=== PATIENT | male | born 1950 | race Caucasian/White ===

== ENCOUNTER 2022-11-08 13:52 | Outpatient (REF) | payer MEDICARE, MEDICAID, SELFPAY ==
[2022-11-08 15:29] LABS: Hematocrit 39.3 % (42.0-52.0); Hemoglobin 12.5 g/dl (14.0-18.0); Mean Corpuscular HGB Conc 31.8 g/dl (31.0-36.0); Mean Corpuscular Hemoglobin 28.8 pg (27.0-33.0); Mean Corpuscular Volume 90.6 fL (80.0-98.0); Mean Platelet Volume 9.3 fL (9.4-12.4); Platelet Count 460 X10*3/uL (160-400); Red Blood Count 4.34 X10*6/uL (4.60-5.80); Red Cell Distribution Width 14.7 % (11.0-16.0); White Blood Count 9.1 X10*3/uL (4.8-10.8)
[2022-11-08 16:46] LABS: Alanine Aminotransferase 8 U/L (0-40); Albumin Level 3.9 g/dL (3.5-5.0); Alkaline Phosphatase 92 U/L (39-117); Anion Gap 14 (12-20); Aspartate Amino Transferase 12 U/L (5-37); Bilirubin Total 0.3 mg/dL (0.0-1.0); Blood Urea Nitrogen 8 mg/dL (9-16); Calcium 9.3 mg/dL (8.4-10.2); Carbon Dioxide 30 mmol/L (22-29); Chloride 100 mmol/L (96-108); Estimated Glomerular Filt Rate > 60; Glucose Random 97 mg/dL (60-115); Iron 19 mcg/dL (45-160); Percent Iron Saturation 10 % (15-50); Potassium 4.7 mmol/L (3.3-5.1); Sodium 139 mmol/L (135-145); Total Iron Binding Capacity 193 mcg/dL (228-428); Total Protein 7.2 g/dL (6.5-8.0); Unsaturated Iron Binding 174 ug/dL
[2022-11-08 16:55] LABS: Ferritin 302 ng/mL (20-250); Folate 15.8 ng/mL (> or = 4.0); Vitamin B12 684 pg/mL (200-900); Vitamin D 25-OH Total 36.5 ng/mL (>30)
[2022-11-10 13:09] LABS: Immunoglobulin A 282 mg/dL (70-320)
[2022-11-10 13:39] LABS: Transglutaminase IgA <1.0 U/mL
== END 2022-11-08 13:53 | disposition home or self-care (01) ==
LOC: HO.LAB 13:52
PROVIDERS: PCP Internal Medicine; Visit Provider Internal Medicine
DX: D64.9 Anemia, unspecified (principal); R63.4 Abnormal weight loss; M54.2 Cervicalgia; R51.9 Headache, unspecified
CPT/HCPCS: 36415; 80053; 82306; 82607; 82728; 82746; 82784; 83540; 85027; 86364; 99202

== ENCOUNTER 2022-11-23 14:48 | Outpatient (REF) | payer MEDICARE, OTHER, SELFPAY ==
--- NOTE | ~2022-11-23 | CT_ITS ---
EXAMINATION: CT HEAD WITHOUT CONTRAST CLINICAL INFORMATION: Some echogenic headache for greater than one month COMPARISON: MRI of July 30, 2015 TECHNIQUE: Contiguous axial imaging was performed from the skull base to vertex without intravenous administration of contrast. This CT examination was performed using dose optimization techniques as appropriate, variously including the following: *Automated exposure control *Adjustment of mA and/or kV according to patient size (this includes techniques or standardized protocols for targeted exams where dose is matched to indication/reason for exam; i.e. extremities or head) *Use of iterative reconstruction technique DLP: 898 mGy-cm FINDINGS: No intracranial hemorrhage is identified. No abnormal extra-axial fluid collection. No significant mass effect or midline structure shift. Ventricle, sulci, and cisterns appear unremarkable. Lynn-white matter interface is maintained. Temporomandibular joints appear unremarkable. Calvarium is intact. The paranasal sinuses and mastoid air cells appear aerated. No significant temporal mandibular joint abnormality appreciated. CT/CT head/brain wo IV con IMPRESSION: No acute intracranial pathology.
== END 2022-11-23 14:49 | disposition home or self-care (01) ==
LOC: HO.CT 14:48
PROVIDERS: PCP Internal Medicine; Visit Provider Internal Medicine
DX: G44.86 Cervicogenic headache (principal)
CPT/HCPCS: 70450

== ENCOUNTER 2022-11-30 12:59 | Day surgery (SDC) | payer MEDICARE, OTHER, SELFPAY ==
[2022-11-23 16:12] VITALS: BMI 21.7
--- NOTE | 2022-11-30 13:33 | P.CONAN_ITS ---
HPI - Anesthesia Eval Consult details Narrative: ho anemia involuntary weight loss screening PMFSH Active Problems Active Problems: All Active Problems (Updated 11/30/22 @ 13:28 by Rahel Wolfe RN) Anemia (Acute) Unintentional weight loss (Acute) Neck pain (Acute) Headache (Acute) Past Medical History Medical History Cervical disc disease Cough History of hepatitis B Hx of Guillain-Marquand syndrome Normocytic anemia Functional capacity: independent ambulation Family History Family History Father Heart attack Mother Cancer Family history of problems with anesthesia: No Surgical History Surgical History History of dental surgery History of tonsillectomy and adenoidectomy Hx of colonoscopy History of Problems with Anesthesia: No Social History Social History Household Members: Spouse Alcohol intake: never Patient Tobacco Use Status: Current everyday Tobacco user Tobacco use type: Cigarette Cigarettes Per Day: 3 Have you been hit, kicked, punched, or otherwise hurt by someone within the past year? If so, by whom?: No Are you DNR?: No Advance Directives: No Advance Directives Information Provided: Yes Advance Directives on File: No Recently lost weight without trying: No Eating poorly because of decreased appetite: No Nutrition Risks: No Nutritional Risk Meds Allergies Allergy/AdvReac Type Severity Reaction Status Date / Time ENVIRONMENTAL Allergy Mild SINUS Uncoded 11/30/22 13:18 CONGESTION dust Allergy Unknown Unknown Uncoded 11/30/22 13:18 feathers Allergy Unknown Unknown Uncoded 11/30/22 13:18 mold Allergy Unknown Unknown Uncoded 11/30/22 13:18 Active Medications: Current Medications Lactated Ringer's (Lr) 1,000 mls @ 50 mls/hr IVCONT .Q20H [facility] Home Medications Medication Instructions Recorded Confirmed Last Taken Type ferrous gluconate 324 mg (38 mg 324 mg PO QAM 11/08/22 11/30/22 11/23/22 History iron) tablet fluticasone propionate 50 1 spray intranasal DAILY 11/08/22 11/23/22 Unknown History mcg/actuation nasal spray,suspension loratadine 10 mg tablet 10 mg PO DAILY 11/08/22 11/23/22 Unknown History methocarbamol 750 mg tablet 750 mg PO TID PRN Muscle Spasm 11/08/22 11/23/22 Unknown History Exam Exam Date and Time: November 30, 2022 1333 Height,Weight and Vital Signs: Height 5 ft 11 in Weight 70.76 kg Airway Mallampati Class: II TM Dist: >3cm Neck ROM: Full (H/o cervalgia) Loose/Missing/Broken Teeth: No Heart: RR Lungs: CTA Assessment and Plan Assessment Anesthesia Assessment: Anesthesia Plan Discussed, Smoking Cess. Discussed and Chart Reviewed Final Anesthetic Review Family History of Problems with Anesthesia: No History of Problems with Anesthesia: No NPO: Yes ASA Class: II Final Preanesthetic Review: No Changes in Pt Med Stat, Meds/Allgs Chart Reviewed, Consent Obtained/Reviewed and Anes Risks/Benef Reviewed Patient Risk: Low Procedure Risk: Low Anesthetic Plan Anesthetic Plan: MAC: Disposition: Standard PACU
[2022-11-30 13:40] VITALS: BP 154/79; PULSE 81; RESP 17; TEMP 36.9; O2SAT 99
[2022-11-30] MEDS: Lactated Ringers 1,000 ML 50 ML IVCONT (13:49)
--- NOTE | 2022-11-30 14:24 | MHC.SHP ---
Pre-Procedural Eval Section A Date of Service: 11/30/22 The History & Physical has been completed within 30 days and I have reviewed it.: Yes Section B Chief Complaint: Anemia, weight loss Allergies: Allergies Allergy/AdvReac Type Severity Reaction Status Date / Time ENVIRONMENTAL Allergy Mild SINUS Uncoded 11/30/22 13:18 CONGESTION dust Allergy Unknown Unknown Uncoded 11/30/22 13:18 feathers Allergy Unknown Unknown Uncoded 11/30/22 13:18 mold Allergy Unknown Unknown Uncoded 11/30/22 13:18 Plan Diagnosis/Plan: Unchanged I have reviewed the history and physical and performed a pertinent physical examination on my patient. No changes have occurred unless specified. Time Spent With Patient Time: Total time managing care of this patient today ____ minutes.
--- NOTE | 2022-11-30 14:36 | P.OP_ITS ---
Operative Note Operative Note Date of Service: 11/30/22 Narrative: Procedure:?Esophagogastroduodenoscopy and colonoscopy Indication:?Anemia and weight loss Endoscopist:?Karen Pedraza MD Anesthesia Provider:?Aye Owen CRNA Anesthesia type:?MAC Instrument:?Olympus GIF-H190, PCF-H190L EGD Procedure:?? The procedure, indications, preparation and potential complications were reviewed with the patient, who indicated understanding and gave written informed consent to proceed. A physical exam was performed. The endoscope was introduced through the mouth, and advanced to the second part of the duodenum. The mucosa was carefully examined on slow withdrawal of the endoscope. The patient tolerated the procedure well. There were no immediate complications.? ? EGD Findings:? * Esophagus: Small pale plaques with overlying yellowish exudate was noted in lower esophagus. Cold forceps biopsies were obtained to rule out glycogenic acanthosis. Z line was at 43 cm. * Stomach:?Scant heme and erosions were noted in the cardia. Atrophic appearing mucosa was noted in body of the stomach. Jennifer protocol cold forceps biopsies were taken. * Duodenum:? Normal mucosa to the extent seen.? Cold forceps biopsies were taken duodenal bulb and 2nd portion of the duodenum to rule out celiac sprue. Colonoscopy Procedure:? The patient was then turned for the colonoscopy. A digital rectal exam was performed which was normal. A distal attachment cap was affixed to the tip of the scope and the colonoscope was then inserted through the anus and advanced through the colon to the cecum at 80 cm and terminal ileum. The appendiceal orifice and ileocecal valve was identified.? Mucosa was carefully examined under high definition white light as the instrument was slowly withdrawn in a retrograde panoramic fashion. Ascending colon was intubated twice. Retroflexion was performed in rectum. The procedure was not difficult. There were no immediate obvious complications. The quality of the prep was BBPS: 2+2+3 = excellent Withdrawal time 8 minutes. Limitations: No limitations. Colonoscopy Findings: Mucosa: Normal mucosa in whole colon and terminal ileum. Cold forceps biospies were taken from right and left side of the colon to rule out microscopic colitis. Protruding lesions: * Medium internal hemorrhoids without stigmata of recent bleeding. Impression:? * Pale plaques in lower esophagus (biopsy) * Abnormal gastric mucosa (biopsy) * Normal duodenum (biopsy) * Normal terminal ileum mucosa * Normal colon mucosa (biopsy) * Internal hemorrhoids Recommendations:?? * Follow path results. * If H pylori positive, eradication therapy will be prescribed. * Repeat colonoscopy not recommended for CRC screening due to age. Above has been reviewed with the patient.
[2022-11-30 15:25] VITALS: BP 97/55; PULSE 76; RESP 18; TEMP 37.4; O2SAT 99
[2022-11-30 15:40] VITALS: BP 118/67; PULSE 69; RESP 18; TEMP 37.4; O2SAT 99
== END 2022-11-30 16:30 | disposition home or self-care (01) ==
PROVIDERS: PCP Internal Medicine; Visit Provider Internal Medicine
PROC: (CPT 45380; principal; 2022-11-30 14:10)
DX: D64.9 Anemia, unspecified (principal); R63.4 Abnormal weight loss; Z68.21 Body mass index [BMI] 21.0-21.9, adult; K64.8 Other hemorrhoids; K31.7 Polyp of stomach and duodenum; K29.50 Unspecified chronic gastritis without bleeding; K31.89 Other diseases of stomach and duodenum; R51.9 Headache, unspecified; M54.2 Cervicalgia; G61.0 Guillain-Barre syndrome; Z79.899 Other long term (current) drug therapy; F17.210 Nicotine dependence, cigarettes, uncomplicated
CPT/HCPCS: 45380; 43239; 88302; 88305; 88313; 88342

== ENCOUNTER → 2022-12-20 13:49 | Outpatient (BNVA) | payer MEDICARE, MEDICAID, SELFPAY | PROVIDERS: PCP Internal Medicine; Referring Provider Internal Medicine; Visit Provider Internal Medicine | DX: D64.9 Anemia, unspecified (principal); R63.4 Abnormal weight loss | CPT/HCPCS: 99212 ==

== ENCOUNTER 2023-03-28 14:51 | Outpatient (REF) | payer MEDICARE, OTHER, SELFPAY ==
--- NOTE | ~2023-03-28 | CT_ITS ---
EXAMINATION: CT CERVICAL SPINE WITHOUT CONTRAST CLINICAL INFORMATION: Neck pain. COMPARISON: None available. TECHNIQUE: Multidetector helical imaging acquired in the axial plane with generation of reformatted acquisitions. This CT examination was performed using dose optimization techniques as appropriate, variously including the following: *Automated exposure control *Adjustment of mA and/or kV according to patient size (this includes techniques or standardized protocols for targeted exams where dose is matched to indication/reason for exam; i.e. extremities or head) *Use of iterative reconstruction technique DLP: 556 mGy-cm FINDINGS: There is severe disc space narrowing with endplate sclerosis and osteophyte formation at the C3-C4 level with a very mild retrosubluxation. Significant loss of disc height also evident at the C4-C5 level with endplate sclerosis. Rightward curvature of the mid cervical spine noted. There is ossification of the posterior longitudinal ligament at the C5-C6 level impressing upon the ventral thecal sac. Moderate loss of disc height evident at the C6-C7 and C7-T1 levels. There is generalized bony demineralization. C2-C3: Mild disc bulge and uncovertebral joint spurring with moderate right-sided facet degeneration. Findings result in mild central canal stenosis without significant foraminal encroachment. C3-C4: Severe disc space narrowing with endplate spurring and vacuum phenomenon. Broad-based right paracentral disc protrusion distorts the ventral cord and thecal sac. Moderate central canal stenosis and hypertrophic facet arthropathy with uncovertebral joint spurring contributing to significant left foraminal encroachment. C4-C5: Severe disc space narrowing with a shallow, broad-based central disc protrusion and underlying endplate spurring. Mild central canal stenosis with uncovertebral joint spurring contributing to [id number] foraminal encroachment. C5-C6: Ossification of the posterior longitudinal ligament and disc-osteophyte complex mild to moderately distorts the ventral thecal sac. Tdfd-dh-jedrsqin central canal stenosis without foraminal narrowing. C6-C7: Urbsckww-mh-qtseqm loss of disc height and shallow disc-osteophyte complex with moderate right foraminal narrowing and moderate central canal stenosis. C7-T1: Mild disc-osteophyte complex without central canal stenosis or foraminal narrowing. The craniovertebral junction appears normal. Additional degenerative changes noted at the odontoid tip with vacuum phenomenon at the atlantodental interval. There are mild degenerative changes of the temporomandibular joints. The paraspinal soft tissues appear normal. The lung apices are clear with mild paraseptal emphysematous changes. The imaged portions of the brain demonstrate no acute abnormality. The middle ear cavities and mastoid air cells are well aerated. The imaged sinuses are clear. The nasopharyngeal soft tissues are unremarkable. Mild atherosclerotic wall calcifications noted at the carotid bifurcations. CT/CT cervical spine wo IV con IMPRESSION: 1. Moderate multilevel cervical spondylosis and rightward spinal curvature. Ossification of the posterior longitudinal ligament at the C5-C6 level with pzld-va-udtplqzx central canal stenosis. 2. Severe disc space narrowing and endplate spurring at the C3-C4 level with a broad-based right paracentral disc protrusion distorting the ventral cord and thecal sac. Moderate central canal stenosis and significant left foraminal narrowing. 3. Severe disc space narrowing and shallow central disc protrusion at the C4-C5 level with mild central canal stenosis and ntim-hq-wzjsjfuf foraminal narrowing. 4. Moderate degenerative disc disease at the C6-C7 level with moderate central canal stenosis and moderate right foraminal narrowing.
[2023-03-28 16:48] LABS: Hematocrit 40.7 % (42.0-52.0); Hemoglobin 13.5 g/dl (14.0-18.0); Mean Corpuscular HGB Conc 33.2 g/dl (31.0-36.0); Mean Corpuscular Hemoglobin 31.1 pg (27.0-33.0); Mean Corpuscular Volume 93.8 fL (80.0-98.0); Mean Platelet Volume 10.2 fL (9.4-12.4); Platelet Count 315 X10*3/uL (160-400); Red Blood Count 4.34 X10*6/uL (4.60-5.80); Red Cell Distribution Width 14.7 % (11.0-16.0); White Blood Count 8.9 X10*3/uL (4.8-10.8)
[2023-03-28 17:18] LABS: Iron 27 mcg/dL (45-160); Percent Iron Saturation 14 % (15-50); Total Iron Binding Capacity 197 mcg/dL (228-428); Unsaturated Iron Binding 170 ug/dL
[2023-03-28 17:27] LABS: Ferritin 280 ng/mL (20-250)
== END 2023-03-28 14:52 | disposition home or self-care (01) ==
LOC: HO.CT 14:51
PROVIDERS: PCP Internal Medicine; Visit Provider Internal Medicine
DX: M54.2 Cervicalgia (principal); D64.9 Anemia, unspecified
CPT/HCPCS: 36415; 72125; 82728; 83540; 85027; 99212

== ENCOUNTER 2023-04-08 14:27 | Outpatient (REF) | payer MEDICARE, SELFPAY ==
--- NOTE | ~2023-04-08 | CT_ITS ---
EXAMINATION: CT CHEST SCREENING CLINICAL INFORMATION: Current smoker. 40 pack year history. COMPARISON: Previous chest CT March 2018 TECHNIQUE: Multidetector volumetric CT imaging of the chest is performed without contrast using low dose technique. Additional 2D coronal and sagittal reformatted images and axial 3D maximum intensity projection (MIP) images are generated on the CT workstation. This CT examination was performed using dose optimization techniques as appropriate, variously including the following: *Automated exposure control *Adjustment of mA and/or kV according to patient size (this includes techniques or standardized protocols for targeted exams where dose is matched to indication/reason for exam; i.e. extremities or head) *Use of iterative reconstruction technique DLP: 51 mGy-cm FINDINGS: LUNGS: Mild emphysema. 2 mm right upper lobe nodule axial image 106 series 5. This is similar to March 2018 exam. There is subsegmental atelectasis at the lung bases. The lungs are otherwise clear. No endobronchial or endotracheal lesion. MEDIASTINUM: Normal heart size. No pericardial effusion. Mild coronary artery calcification. Mild aortic valve calcification. Upper normal-size thoracic aorta. No enlarged hilar or mediastinal lymph nodes. Normal thyroid gland. CORONARY ARTERY CALCIFICATION: Mild PLEURA: There is no pleural effusion. No pleural mass or thickening. AXILLA: No lymphadenopathy. UPPER ABDOMEN: Unremarkable OSSEOUS STRUCTURES: Degenerative changes of the spine. CT/CT lung screening IMPRESSION: Mild emphysema. Small stable 2 mm right upper lobe nodule. ASSESSMENT: Lung-RADS category 1: Negative RECOMMENDATION: Annual low-dose chest CT follow-up recommended
== END 2023-04-08 14:28 | disposition home or self-care (01) ==
LOC: HO.CT 14:27
PROVIDERS: PCP Internal Medicine; Visit Provider Physician Assistant Medical
DX: Z12.2 Encounter for screening for malignant neoplasm of respiratory organs (principal); F17.210 Nicotine dependence, cigarettes, uncomplicated
CPT/HCPCS: 71271; G0296

== ENCOUNTER 2023-05-17 12:02 | Outpatient (REF) | payer MEDICARE, SELFPAY ==
--- NOTE | ~2023-05-17 | CT_ITS ---
EXAMINATION: CT ABDOMEN AND PELVIS WITH CONTRAST CLINICAL INFORMATION: 73-year-old male with abnormal weight loss COMPARISON: None available. TECHNIQUE: Multidetector volumetric images were obtained from the superior aspect of the liver through the pubic symphysis following administration 85 mL of Omnipaque 350 intravenous contrast. Sagittal and coronal reformatted images were obtained on the technologist's workstation. Oral contrast: Administered This CT examination was performed using dose optimization techniques as appropriate, variously including the following: *Automated exposure control *Adjustment of mA and/or kV according to patient size (this includes techniques or standardized protocols for targeted exams where dose is matched to indication/reason for exam; i.e. extremities or head) *Use of iterative reconstruction technique DLP: 344 mGy-cm FINDINGS: LUNG BASES: There are mild linear scarring seen bibasilar LIVER, GALLBLADDER, AND BILIARY TREE: There is 0.5 cm cyst in the left lobe of the liver. The rest of liver revealed normal attenuation size and shape. Gallbladder is unremarkable. PANCREAS: Unremarkable. SPLEEN: Unremarkable. ADRENAL GLANDS: Unremarkable. KIDNEYS AND URETERS: The kidneys are normal in size, shape, and attenuation. No hydronephrosis, hydroureter, or calculi seen. No perinephric stranding. BLADDER: Unremarkable. GASTROINTESTINAL TRACT: The small and large bowel are unremarkable. The appendix is not seen. ABDOMINAL WALL: No significant hernia is appreciated. LYMPH NODES: Normal. VASCULAR: Unremarkable. PELVIC VISCERA: Posterior disease is heterogeneous and enlarged OSSEOUS STRUCTURES: There are multilevel degenerative changes in lumbar spine with pars defect at the level of L5-S1 bilaterally not associated with spondylolisthesis. 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 There is levoscoliosis of lumbar spine CT/CT abdomen pelvis w IV con IMPRESSION: 1. No explanation for weight loss. 2. Degenerative changes in lumbar spine and right hip joint. 3. Prostate hypertrophy Fleischner guidelines were followed.
[2023-05-17 13:25] LABS: Ferritin 238 ng/mL (20-250); Iron 51 mcg/dL (45-160); Percent Iron Saturation 23 % (15-50); Total Iron Binding Capacity 218 mcg/dL (228-428); Unsaturated Iron Binding 167 ug/dL
[2023-05-17] MEDS: Barium Sulfate Oral (Vanilla) 450 ML ORAL.SUSP 900 ML PO (15:09)
[2023-05-17] MEDS: iohexoL 350 MG/ML 100 ML INFUS..BTL IV (15:09)
[2023-05-18 08:27] LABS: Creatinine POC 0.6 mg/dL (0.5-1.4); GFR POC > 60
== END 2023-05-17 12:03 | disposition home or self-care (01) ==
LOC: HO.CT 12:02
PROVIDERS: PCP Internal Medicine; Visit Provider Internal Medicine
DX: D64.9 Anemia, unspecified (principal); R63.4 Abnormal weight loss
CPT/HCPCS: 36415; 74177; 82565; 82728; 83540; Q9967

== ENCOUNTER 2024-02-01 09:14 | Outpatient (REF) | payer MEDICARE, MEDICAID, SELFPAY ==
[2024-02-01 14:53] LABS: MANUAL DIFF FLAG NO
[2024-02-01 14:56] LABS: Basophils Absolute Auto 0.1 X10*3/uL (0.0-0.2); Basophils Percent Auto 0.7 % (0-2); Eosinophils Absolute Auto 0.2 X10*3/uL (0.0-0.4); Eosinophils Percent Auto 2.1 % (0-4); Hematocrit 44.5 % (42.0-52.0); Hemoglobin 14.6 g/dl (14.0-18.0); Imm Gran Abs Auto 0.02 X10*3/uL (0.00-0.03); Imm Gran Pct Auto 0.2 % (0.0-0.4); Lymphocytes Absolute Auto 2.5 X10*3/uL (1.2-4.9); Lymphocytes Percent Auto 30.4 % (20-40); Mean Corpuscular HGB Conc 32.8 g/dl (31.0-36.0); Mean Corpuscular Hemoglobin 31.9 pg (27.0-33.0); Mean Corpuscular Volume 97.4 fL (80.0-98.0); Mean Platelet Volume 10.8 fL (9.4-12.4); Monocytes Absolute Auto 0.5 X10*3/uL (0.1-1.2); Neutrophils Percent Auto 60.6 % (45-73); Platelet Count 259 X10*3/uL (160-400); Red Blood Count 4.57 X10*6/uL (4.60-5.80); White Blood Count 8.3 X10*3/uL (4.8-10.8)
[2024-02-01 17:01] LABS: Alanine Aminotransferase 8 U/L (0-40); Alkaline Phosphatase 92 U/L (39-117); Anion Gap 11 (12-20); Aspartate Amino Transferase 15 U/L (5-37); Bilirubin Total 0.5 mg/dL (0.0-1.0); Blood Urea Nitrogen 13 mg/dL (9-16); Calcium 9.7 mg/dL (8.4-10.2); Carbon Dioxide 30 mmol/L (22-29); Chloride 101 mmol/L (96-108); Estimated Glomerular Filt Rate > 60; Glucose Random 72 mg/dL (60-115); Potassium 3.7 mmol/L (3.3-5.1); Sodium 138 mmol/L (135-145); Total Protein 7.4 g/dL (6.5-8.0)
== END 2024-02-01 09:15 | disposition home or self-care (01) ==
LOC: HO.CHCLDS 09:14
PROVIDERS: Visit Provider Internal Medicine
DX: Z00.00 Encounter for general adult medical examination without abnormal findings (principal); D64.9 Anemia, unspecified
CPT/HCPCS: 36415; 80053; 85025

== ENCOUNTER 2024-03-08 16:06 | Outpatient (REF) | payer MEDICARE, MEDICAID, SELFPAY ==
[2024-03-08 18:10] LABS: Influenza A PCR NEGATIVE (Negative); Influenza B PCR NEGATIVE (Negative); Resp Syncy Virus RNA Qual PCR NEGATIVE (Negative); SARS COV2 PCR INHOUSE NEGATIVE (Negative)
== END 2024-03-08 16:07 | disposition home or self-care (01) ==
LOC: HO.CHCLNP 16:06
PROVIDERS: Visit Provider Family Medicine
DX: J06.9 Acute upper respiratory infection, unspecified (principal)
CPT/HCPCS: 0241U; 87070

== ENCOUNTER 2024-07-27 11:53 | Outpatient (REF) | payer MEDICARE, MEDICAID, SELFPAY ==
--- NOTE | ~2024-07-27 | XR_ITS ---
EXAMINATION: XR RIBS, BILATERAL CLINICAL INFORMATION: Right-sided rib pain. COMPARISON: CT chest 04/08/2023. TECHNIQUE: 3 views of the bilateral ribs were obtained. FINDINGS: Mildly displaced fracture of the right anterior eighth and ninth ribs. Normal appearance of the cardiomediastinal silhouette. No focal consolidation, pleural effusion or pneumothorax. XR/XR ribs BI 3V IMPRESSION: 1. Mildly displaced fractures of the right anterior eighth and ninth ribs. 2. No acute cardiopulmonary findings. Electronically signed by: Mariella Dennison MD 07/27/2024 04:11 PM EDT
== END 2024-07-27 11:54 | disposition home or self-care (01) ==
LOC: HO.XRAY 11:53
PROVIDERS: PCP Internal Medicine; Visit Provider Pediatrics
DX: R07.81 Pleurodynia (principal)
CPT/HCPCS: 71110

== ENCOUNTER 2024-10-30 15:08 | Outpatient (REF) | payer MEDICARE, MEDICAID, SELFPAY ==
--- NOTE | ~2024-10-30 | CT_ITS ---
CLINICAL HISTORY: F17.210 - Nicotine dependence, cigarettes, uncomplicated CT lung cancer screening (LDCT) Comparison: None Technique: Axial CT images of the chest using low-dose technique. Referring provider counseled the patient on shared decision-making for LDCT screening. Additional counseling was provided on smoking cessation. Effective radiation dose total: DLP 80 mGycm, CTDIvol 1.9 mGy. Findings: The thyroid gland appears normal. There is no mediastinal, hilar, axillary lymphadenopathy. The heart is normal in size. There is no pericardial effusion. Coronary artery calcifications are present. Linear scarring is seen in bilateral lower lobes. Mild centrilobular and paraseptal emphysema is seen in bilateral upper lobes. No suspicious pulmonary nodule is identified. Limited examination of the upper abdomen demonstrates a subcentimeter left hepatic hypodensity that is too small to characterize. There are subacute/remote appearing fractures of the right lateral 8th and 9th ribs. Mild degenerative changes are seen in the spine. No acute osseous abnormality is identified. Impression: 1. No suspicious pulmonary nodule is identified (Lung-RADS 1). Recommend continued annual low-dose screening CT chest in 12 months. 2. Mild pulmonary emphysema. 3. Coronary artery calcifications. Category 1: Normal; continue annual screening Category 2: Benign appearance or behavior, continue annual screening Category 3: Probably benign, [address] recommended Category 4A: Suspicious, [address] recommended; may consider PET/CT Category 4B: Suspicious, Additional diagnostics and/or tissue sampling recommended Category 4X: Suspicious, Additional diagnostics and/or tissue sampling recommended Category 0: Recalls (incomplete screen due to Incomplete coverage, Noise, Respiratory motion, Expiration, Obscured by acute abnormality) This document has been electronically signed by: Ada Whiting on 10/31/2024 08:48:26
--- OUTSIDE RECORDS SUMMARY | 2024-10-30 17:08 | XMS_ITS | Data Portability ---
Author Organization [place] - [facility], Allergy Address [address] [place] [phone] Care Team Providers Care Respiratory Care Assistant Name Role Phone CURT BRAY Primary Care Provider [phone] Assessment Encounter Date Assessment Date Assessment LastModified by Organization Details LastModified Time 10/23/2024 10/23/2024 Patient with bilateral sensorineural hearing loss, left greater than right, undergoing workup for cochlear implantation. CAT scan of the temporal bones was done today in the office which shows mildly sclerotic mastoids bilaterally, but no anatomic contraindications to cochlear implantation in either ear. The patient has been found to meet the anatomic and audiologic candidacy criteria for cochlear implantation in the left ear. Today we discussed the risks, benefits, and complications associated with cochlear implantation, including the risks of bleeding, infection, CSF leak, temporary or permanent facial nerve paralysis or paresis, delayed facial paresis, long-term risk of meningitis, and risk for device failure or need for device removal or replacement. We discussed the importance of keeping up-to-date Prevnar 20 vaccine to reduce the long-term risk of meningitis. After full discussion, the patient would like to go ahead and proceed with implantation. We will be implanting the left ear with the Cochlear [employer] CI 632implant. After full discussion, the patient would like to proceed with surgery. I have provided patient with the contact information for my surgical orderly. We will begin the scheduling process and see the patient back at the time of surgery. Patient will require medical clearance from their primary care provider preoperatively. Patient has been specifically instructed to contact Zeny Love with Cochlear to choose processors and accessories. Patient has been specifically instructed to contact his sales leader Cielo Jacinto at the [facility] Cochlear Implant Program once he knows his surgical date to set up post implant mapping appointments. [email or web address] Not available 10/23/2024 11:33:37 Plan of Treatment Reminders Order Date Submit Date Provider Last Modified By Organization Details Last Modified Time Details Appointments SURGERY 150 2024 01:00P M IVA CASTELLANOS MD Not available Not available Not available Establish ed 15 2024 11:15A M WAQAR JEONG PA-C Not available Not available Not available Establish ed 10 2024 03:30P M IVA CASTELLANOS MD Not available Not available Not available Lab None recorded. Referral None recorded. Procedures None recorded. Surgeries cochlear device implantat ion (SURG) 2024 025 [email or web address] Not available 10/25/2024 10:06:11 Imaging MRI, brain + internal auditory canal, w/wo contrast - MRI, BRAIN + INTERNAL AUDITORY CANAL, W/WO CONTRAST 2023 024 [facility] ([facility]), [address] [facility], [place], [address], 04/10/2024 14:52:34 Medication Orders None recorded. Patient TargetsNo targets recorded. Patient InstructionsNo instructions recorded. Reason for Referral None Reported. Results Created Date Observation Date Name Description Value Unit Range Abnormal Flag Note LastModifiedBy Organization Detail LastModifiedTime 04/10/20 24 04/09/2024 MRI, brain + brain stem, w/wo contr ast [facility] Access ion Number : [id number] Patien t Name: Fred white, Mundo Pata l Record Number : [id number] Date of : 1949 Date of Exam: 2023 Referr ing Physic alicia: Mateo Castellanos re Ear Nose [address] [place] [address] Exam: MR Brain (C-/C+ ) CPT 76580 Room Descri ption: [facility] Verio 3.0T MRI of the brain withou t and with contra st with focus to IACs Clinic al indica tions: Dizzin ess and hearin g loss Compar juju: None. FINDIN GS: No CP angle tumor is seen. Bilate ral 7th and 8th nerve comple xes are normal in calibe r and signal intens ities. No abnorm al enhanc ement is noted. There is no eviden ce of an acoust ic schwan noma. The visual ized brain parenc hyma shows genera lized age-re lated atroph y. Small cystic enceph alomal acia is seen in the right assisted living manager ior inferi or occipi arturo lobe. Old lacuna r infarc ts are seen within the right cerebe llum. Mild bilate ral white matter diseas e is nonspe cific and could repres ent chroni c small vessel ischem ic diseas e. Please correl ate clinic ally. There is no defini te abnorm al enhanc ement after contra st. Normal flow-v oids are noted at within major intrac ranial arteri es. There is an elonga ryan fillin g defect in the left sigmoi d sinus, suspic ious for dural sinus thromb osis. Please correl ate with the MR venogr am of head. There is mild mucosa l thicke sandra within bilate ral ethmoi d sinuse s. Bilate ral mastoi d air cells are partia lly opacif ied, more on left. IMPRES AMINA: Normal IACs withou t and with contra st. There is an elonga rayn fillin g defect in the left sigmoi d sinus, suspic ious for dural sinus thromb osis. Please correl ate with the MR venogr am of head. A Signif icant action able findin g will be commun icated to the orderi ng or respon sible provid er by the medica l record s depart ment. Receip t of this commun icatio n by the respon sible or orderi ng provid er will be docume nted in [facility] onnect Action able Findin senthil dye e [place] [id number]. Electr onical ly Signed By: Dharmesh Davenport MD [email or web address] [place] [address] [facility] ([facility]) [address], [place], [address], 04/19/2024 13:16:38 05/03/20 24 05/03/2024 MR, angio gram, brain , w/wo contr ast [facility] Access ion Number : [id number] Stormy jack Name: Mundo Akins Record Number : [id number] Date of : 1949 Date of Exam: 2023 Referr ing Physic alicia: Mateo Castellanos re Ear Nose [address] [place] [address] Exam: MR Brain Angio (C-/C+ ) CPT 28666 Room Descri ption: [facility] Pion 3T MR Brain Angio (C-/C+ ) CPT 42601 HISTOR Y: Dizzin ess. Bilate ral hearin g loss. COMPAR JUJU: MRI of brain on 04/09/20 24. FINDIN GS: The superi or sagitt al sinus, the straig ht sinus, the vein of Braxton and bilate ral transv erse and sigmoi d sinuse s show no fillin g defect . The left transv erse and sigmoi d sinuse s are slight ly smalle r in calibe rs which are normal varian ts. The visual ized brain parenc hyma shows a small cystic enceph alomal acia in the right occipi arturo lobe. Old lacuna r infarc ts are seen in the right cerebe llum. No abnorm al enhanc ement. IMPRES AMINA: Unrema rkable MR venogr am of head. No eviden ce of dural sinus thromb osis is seen. Electr onical ly Signed By: Dharmesh Davenport MD [email or web address] [facility] ([facility]) [address] [facility], [place], [address], 05/20/2024 07:48:44 05/29/2007/12/2023 imagi ng/di agnos tic resul t No observ ation record ed. [email or web address] Not Available 21:42:53 05/29/2007/20/2023 imagi ng/di agnos tic resul t No observ ation record ed. [email or web address] Not Available 21:42:54 05/29/2007/20/2023 cochl ear impla nt deter minat ion form* No observ ation record ed. [email or web address] Not Available 2024 10:32:52 10/27/1910/23/2024 CT, tempo ral bone, w/o contr ast No observ ation record ed. [email or web address] [facility] [address], [address], 10/29/2024 13:17:35 Result Notes None recorded. Problems Name Problem SNOMED Code Status Onset Date Resolution Date Notes Provider Name and Address Organization Details Recorded Time Sensorineural hearing loss of bilateral ears 989007342 Active 2023 IVA CASTELLANOS MD [address] [address], [place], [address], [facility] - [facility] 16:56:20 Cerebral venous sinus thrombosis 460702713 Active 2023 IVA CASTELLANOS MD [address] [address], [place], [address], [facility] - [facility] 13:17:13 Problem Notes None recorded. Procedures Surgical History Date Name Laterality Status Provider Name and Address Organization Details Recorded Time CT temporal bones - Xoran completed IVA CASTELLANOS MD [address] [place] [address], [phone], [facility] 10/23/2024 10:31:51 Imaging Results Imaging Date Name Status LastModified by Organization Details LastModified Time 04/09/2024 MRI, brain + brain stem, w/wo contrast completed [address] [facility] ([facility]) [address], [place], [address], 04/19/2024 13:16:38 05/03/2024 MR, angiogram, brain, w/wo contrast completed [address] [facility] ([facility]) [address], [place], [address], 05/20/2024 07:48:44 07/12/2023 imaging/diagnosti c result completed Information not available 05/29/2024 21:42:53 07/20/2023 imaging/diagnosti c result completed Information not available 05/29/2024 21:42:54 07/20/2023 cochlear implant determination form* completed [email or web address] Information not available 10/23/2024 10:32:52 10/23/2024 CT, temporal bone, w/o contrast completed [email or web address] [facility] [address] [facility] [address], [place], [address], 10/29/2024 13:17:35 Procedure Notes None recorded. Medical Equipment None Reported. Allergies No known drug allergies Medications Name Sig Start Date Stop Date Status Note LastModified by Organization Details LastModified Time Sudogest 30 mg tablet Take 2 tablets every 4 hours by oral route. active Not Available Not Available Not Available famotidine 20 mg tablet Take 1 tablet twice a day by oral route. active Not Available Not Available No t Available meclizine 25 mg tablet Take 1 tablet 3 times a day by oral route. active Not Available Not Available No t Available omeprazole 20 mg capsule,dejah yed release Take 1 capsule every day by oral route. active Not Available Not Available No t Available fluticasone propionate 50 mcg/actuatio n nasal spray,suspen amina [place] 1 spray every day by intranasal route. active Not Available Not Available No t Available loratadine 10 mg capsule Take by oral route. active Not Available Not Available Not Available Vitals None Recorded Social History None recorded. Functional Status None recorded. Mental Status None recorded. Family History Nothing Reported. Medical History Condition Response GERD/Reflux Y Past Encounters Encounter ID Performer Location Encounter Start Date Encounter Closed Date Diagnosis/Indication Diagnosis SNOMED-CT Code Diagnosis ICD10 Code Diagnosis Note [id number] IVA CASTELLANOS MD [facility] [address] [address] 03/29/2024 14:02:51 03/29/2024 15:13:02 Sensorineural hearing loss of bilateral ears 304940706 H90.3 Patient's audiogram is demonstrat ing an asymmetric sensorineu ral hearing loss affecting the {{right ear greater than left left ear greater than right*}}. This is enough of an asymmetry to warrant retrocochl ear workup. Recommend MRI scan of the brain and internal auditory canals with gadolinium . We will arrange this and see the patient back for review over a teleheath visit. Today we went over his cochlear implant evaluation . While he does meet audiologic candidacy criteria for cochlear implantati on in the left ear, currently Medicare does not pay for cochlear implantati on for single-lindsey ed deafness. This may change in the future, but unclear when. In the meantime, the patient is an excellent candidate for right-side d or BiCROS amplificat ion. I have provided him medical clearance to return to [facility] audiology to discuss this in more detail. [id number] IVA CASTELLANOS MD [facility] [address] [address] 10/23/2024 10:10:46 10/23/2024 11:34:59 Sensorineural hearing loss of bilateral ears 290782533 H90.3 Health Concerns Section Related Observation LastModified by Organization Detai ls LastModified Time None Recorded Concern Status LastModified by Organization Details LastModified Time None Recorded Advance Directives Directive None Recorded Payers Encounter Date Sequence Insurance Name Policy Number Policy Dai Covered Member ID Dai Member ID Guarantor Name 03/29/2024 2 [place] [facility] Mundo A Penelope [id number] Mundo A Penelope 03/29/2024 1 [place] [employer] Mundo A Penelope [id number] Mundo A Penelope 10/23/2024 2 [place] [facility] Mundo A Penelope [id number] Mundo A Penelope 10/23/2024 1 [place] [employer] Mundo A Penelope [id number] Mundo A Penelope Notes Date Note Type Note Provider Name and Address Organization Details Recorded Time 03/29/2024 text/html 74-year-old male referred for evaluation of his hearing. Patient reports having had a sudden left-sided hearing loss about 5 years ago. He is not sure whether he ever had a medical evaluation or treatment for this. He is left with a significantly asymmetric sensorineural hearing loss affecting the left ear greater than right. Patient had audiometric testing at [facility] audiology which showed mild to moderately severe sensorineural hearing loss in the right ear and a severe to profound sensorineural hearing loss in the left ear. Patient underwent formal cochlear implant evaluation and was found to meet the audiologic candidacy criteria for cochlear implantation in the left ear. IVA CASTELLANOS MD [address], [address], [facility] 03/29/2024 16:46:59 10/23/2024 text/html Patient had left sided sudden sensorineural hearing loss about 5 years ago, resulting in a profound sensorineural hearing loss on the left. He also has rather significant sensorineural hearing loss on the right.He underwent cochlear implant evaluation and was found to meet the audiologic candidacy criteria for cochlear implantation on the left. He had MRI scan of the brain which was negative for retrocochlear pathology but there was some concern about a possible vascular anomaly affecting the left sigmoid sinus. He had MRA and MRV of the cerebral vasculature which ended up being normal. Patient returns today for CAT scan of the temporal bones to establish anatomic candidacy for cochlear implantation. IVA CASTELLANOS MD [address] [place] [address],[address], [address], [facility] 10/24/2024 16:57:20
--- OUTSIDE RECORDS SUMMARY | 2024-10-30 17:08 | XMS_ITS | Continuity of Care Document ---
Author Organization [place] - [facility], [facility] Address [address] [place] [address] Care Team Providers Care Administrative Support Assistant Name Role Phone CURT BRAY Primary Care Provider [phone] Assessment Encounter Date Assessment Date Assessment LastModified [...] implanting the left ear with the Cochlear [employer] CI 632implant. After full discussion, the patient would like to proceed with surgery. I have provided patient with the contact information for my surgical elastic knitter. We will begin the scheduling process and see the patient back at the time of surgery. Patient will require medical clearance from their primary care provider preoperatively. Patient has been specifically instructed to contact Zeny Love with Cochlear to choose processors and accessories. Patient has been specifically instructed to contact his field clerk Cielo Jacinto at the [facility] Cochlear Implant Program once he knows his surgical date to set up post implant mapping appointments. [email or web address] Not available 10/23/2024 11:33:37 Plan of Treatment [...] cochlear device implantat ion (SURG) 2024 025 [email or web address] Not available 10/25/2024 10:06:11 Imaging None recorded. Medication Orders None recorded. Patient TargetsNo targets recorded. Patient InstructionsNo instructions recorded. Reason for Referral None Reported. Results Created Date Observation Date Name Description Value Unit Range Abnormal Flag Note LastModifiedBy Organization Detail LastModifiedTime 10/27/19 25 10/23/2024 CT, tempo ral bone, w/o contr ast No observ ation record ed. [facility] [address] [address], [place], [address], 10/29/2024 13:17:35 Result Notes None recorded. Problems Name Problem SNOMED Code Status Onset Date Resolution Date Notes Provider Name and Address Organization Details Recorded Time Sensorineural hearing loss of bilateral ears 430263805 Active 2023 IVA CASTELLANOS MD [address] [place] [address], [phone], [facility] - [facility] 4 16:56:20 Cerebral venous sinus thrombosis 916483228 Active 2023 IVA CASTELLANOS MD [address] [place] [address], [phone], [facility] 4 13:17:13 Problem Notes None recorded. Procedures Surgical History Date Name Laterality Status Provider Name and Address Organization Details Recorded Time CT temporal bones - Xoran completed IVA CASTELLANOS MD [address] [place] [address], [phone], [facility] - [facility] 10/23/2024 10:31:51 Imaging Results None recorded. Procedure Notes None recorded. Medical Equipment None [...] fluticasone propionate 50 mcg/actuatio n nasal spray,suspen tadeo [place] 1 spray every day by intranasal route. [...] SNOMED-CT Code Diagnosis ICD10 Code Diagnosis Note [id number] IVA CASTELLANOS MD [facility] [address] [address] 10/23/2024 10:10:46 10/23/2024 11:34:59 Sensorineural hearing loss of bilateral ears 881998290 H90.3 Health Concerns Section Related Observation LastModified by Organization Detai ls LastModified Time None Recorded Concern Status LastModified by Organization Details LastModified Time None Recorded Payers Encounter Date Sequence Insurance Name Policy Number Policy Dai Covered Member ID Dai Member ID Guarantor Name 10/23/2024 2 [place] [facility] Mundo A Penelope [id number] Mundo A Penelope 10/23/2024 1 [place] [employer] Mundo A Penelope [id number] Mundo A Penelope Notes Date Note Type Note Provider Name and Address Organization Details Recorded Time 10/23/2024 text/html Patient had left sided sudden [...] candidacy for cochlear implantation. IVA CASTELLANOS MD [address] [place] [address], [place], [address], [facility] - [facility] 10/24/2024 16:57:20
== END 2024-10-30 15:09 | disposition home or self-care (01) ==
LOC: HO.CT 15:08
PROVIDERS: PCP Internal Medicine; Visit Provider Physician Assistant Medical
DX: Z12.2 Encounter for screening for malignant neoplasm of respiratory organs (principal); F17.210 Nicotine dependence, cigarettes, uncomplicated
CPT/HCPCS: 71271

== ENCOUNTER → 2024-10-30 15:10 | Outpatient (BNV) | payer MEDICARE, MEDICAID, SELFPAY | PROVIDERS: PCP Internal Medicine; Visit Provider Radiology Vascular & Interventional Radiology | DX: F17.210 Nicotine dependence, cigarettes, uncomplicated (principal) | CPT/HCPCS: 71271 ==

== ENCOUNTER 2024-11-15 10:30 | Outpatient (REF) | payer MEDICARE, MEDICAID, SELFPAY ==
--- OUTSIDE RECORDS SUMMARY | 2024-11-15 10:33 | XMS_ITS | Encounter Summary ---
Author Organization [employer] Address [address] [facility] 7t [place] [address] Care Team Providers Care Flare Worker Name Role Phone Zeeshan Houston MD Primary Care Provider [phone] Encounter Details Date Type Department Care Team (Late st Contact Info) Description 11/02/2024 1:15 PM EST Immunization [facility] [address] [place] [address] Jaqui Mcdonald LPN Encounter for immunization (Primary Dx) Social History Tobacco Use Types Packs/Day Years Used Date Smoking Tobacco: Every Day Cigarettes 1 58 Smokeless Tobacco: Never Comments:Currently Smokes 3 cig a day x the last 4 years. Depression Answer Date Recorded Patient Health Questionnaire-9 Score 3 01/31/2024 Patient Health Questionnaire-9 Score 3 01/31/2024 Last PHQ-9: Questionnaire Data Not on file 0 01/31/2024 Housing Stability Answer Date Recorded What is your housing situation today? I have libby beltran 01/25/[address] you li ve. Do you have problems with any of the following? None of the above 01/25/2024 Food Insecurity Answer Date Recorded Within the past 12 months, y ou worried that your food would run out before you got money to buy more: Never True 01/25/2024 Within the past 12 months,th e food you bought just didn't last and you didn't have enough money to get more: Never True Transportation Answer Date Recorded In the past 12 months, has l ack of transportation kept you from medical appts, meetings, work or from getting things needed for daily living? No 01/25/2024 Utilities Answer Date Recorded In the past 12 months, has t he electric, gas, oil or water company threatened to shut off services in your home? No 01/25/2024 Depression Answer Date Recorded Patient Health Questionnaire-2 Score 1 01/31/2024 Sex and Gender Information Value Date Recorded Sex Assigned at Male 08/09/2022 10:17 AM EDT Legal Sex Male 10:17 AM EDT Gender Identity Male 08/09/2022 10:17 AM EDT Sexual Orientation Straight 08/09/2022 10 :17 AM EDT documented as of this encounter Progress Notes * Jaqui Mcdonald LPN - 11/02/2024 1:15 PM EST Subjective Patient ID: Mundo Negrete is a 74 y.o. male who presents here for PCV 20, pneumococcal conjugate, vaccine. Pt reporting and record indicate no contraindications to vaccination. Pt advised that they could experience pain/redness/swelling @ injection site with a potential to experience head ache, loss of appetite, fever, joint pain, chills following vaccination. Pt states understanding and agrees to vaccination. documented in this encounter Plan of Treatment Upcoming Encounters Date Type Department Care Team (Late st Contact Info) Description 02/14/2025 2:00 PM EDT Office Visit [facility] ADULT DENTAL [address] [place] [address] Candice Cruz documented as of this encounter Visit Diagnoses Diagnosis Encounter for immunization- Primary documented in this encounter Additional Health Concerns Assessment Noted Time PHQ-9 Depression Total Score: 3 01/31/20 24 3:36 PM EDT documented as of this encounter Care Teams Flare Worker Relationship Specialty Start Date End Date Zeeshan Houston MD [address] [place] [address] PCP - General Internal Medicine 02/10/12 documented as of this encounter
--- OUTSIDE RECORDS SUMMARY | 2024-11-15 10:33 | XMS_ITS | Encounter Summary ---
Author Organization [employer] Address [address] [facility] 7t [place] [address] Care Team Providers Care Trim Setter Helper Name Role Phone Zeeshan Houston MD Primary Care Provider [phone] Encounter Details Date Type Department Care Team (Late st Contact Info) Description 10/30/2024 Orders Only [facility] External Provider, [facility] Social History Tobacco Use Types Packs/Day Years [...] AM EDT documented as of this encounter Plan of Treatment Upcoming Encounters Date Type Department Care Team (Late st Contact Info) Description 02/14/2025 2:00 PM EDT Office Visit [facility] ADULT D[facility] [address] [place] [address] Candice Cruz documented as of this encounter Procedures Procedure Name Priority Date/Time Associated Diagnosis Comments LDCT LUNG SCREENING Routine 10/31/2024 8 :48 AM EST documented in this encounter Results * CT Lung Screening Low dose (10/31/2024 8:48 AM EST) Anatomical Region Laterality Modality Lung Computed Tomogra phy 10/31/2024 8:48 AM EST Narrative 10/31/2024 8:49 AM EST ? [facility] ?[address] ?[place] [address] ? CT Scan Report ? Signed ? Patient: Mundo Negrete ?MR#: [id number] ?? [id number] ? : 1950 ?Acct:[id number] ? Age/Sex: 74 / M ?ADM Date: 10/30/24 ? Loc: HO.CT ? Attending Dr: Milagros Roberts PA-C ? Ordering Physician: Milagros Roberts PA-C ?? Date of Service: 10/30/24 ?? Procedure(s): CT lung screening ?? Accession Number(s): [id number] ? cc: Zeeshan Houston MD; Milagros Roberts PA-C ? Report Number: ?? [id number]: Total DLP = ?? 89.00 mGy-cm ? CLINICAL HISTORY: F17.210 - Nicotine dependence, cigarettes, uncomplicated ? CT lung cancer screening (LDCT) ? Comparison: None ? Technique: ?? Axial CT images of the chest using low-dose technique. Referring provider ?? counseled the patient on shared decision-making for LDCT screening. ?? Additional counseling was provided on smoking cessation. ?? Effective radiation dose total: DLP 80 mGycm, CTDIvol 1.9 mGy. ? Findings: ?? The thyroid gland appears normal. There is no mediastinal, hilar, axillary ?? lymphadenopathy. ? The heart is normal in size. There is no pericardial effusion. Coronary ?? artery calcifications are present. ? Linear scarring is seen in bilateral lower lobes. Mild centrilobular and ?? paraseptal emphysema is seen in bilateral upper lobes. No suspicious ?? pulmonary nodule is identified. ? Limited examination of the upper abdomen demonstrates a subcentimeter left ?? hepatic hypodensity that is too small to characterize. ? There are subacute/remote appearing fractures of the right lateral 8th and ?? 9th ribs. Mild degenerative changes are seen in the spine. No acute ?? osseous abnormality is identified. ? Impression: ?? 1. No suspicious pulmonary nodule is identified (Lung-RADS 1). Recommend ?? continued annual low-dose screening CT chest in 12 months. ?? 2. Mild pulmonary emphysema. ?? 3. Coronary artery calcifications. ? Category 1: Normal; continue annual screening ?? Category 2: Benign appearance or behavior, continue annual screening ?? Category 3: Probably benign, [address] recommended ?? Category 4A: Suspicious, [address] recommended; may consider PET/CT ?? Category 4B: Suspicious, Additional diagnostics and/or tissue sampling ?? recommended ?? Category 4X: Suspicious, Additional diagnostics and/or tissue sampling ?? recommended ?? Category 0: Recalls (incomplete screen due to Incomplete coverage, Noise, ?? Respiratory motion, Expiration, Obscured by acute abnormality) ? This document has been electronically signed by: Ada Whiting on ?? 10/31/2024 08:48:26 ? Dictated By: ?Ada Whiting MD ? Signed By: ?<Electronically signed by Ada Whiting MD in OV> ? 10/31/24 0849 ? DD/ 0848 ? TD/TT: 10/31/24 0848 ? Cuprous Chloride Helper: ? Procedure Note Donotuseinterpreter, Image - 10/31/[address] [address] [address] Scan Report Signed Patient: Mundo Negrete AMR#: [id number] : 2Acct:[id number] Age/Sex: 74 / MADM Date: 10/30/24 Loc: HO.CT Attending Dr: Milagros Roberts PA-C Ordering Physician: Milagros Roberts PA-C Date of Service: 10/30/24 Procedure(s): CT lung screening Accession Number(s): [id number] cc: Zeeshan Houston MD; Milagros Roberts PA-C Report Number: [id number]: Total DLP = 89.00 mGy-cm CLINICAL HISTORY: F17.210 - Nicotine dependence, cigarettes, uncomplicated CT lung cancer screening (LDCT) Comparison: None Technique: Axial CT images of the chest using low-dose technique. Referring provider counseled the patient on shared decision-making for LDCT screening. Additional counseling was provided on smoking cessation. Effective radiation dose total: DLP 80 mGycm, CTDIvol 1.9 mGy. Findings: The thyroid gland appears normal. There is no mediastinal, hilar, axillary lymphadenopathy. The heart is normal in size. There is no pericardial effusion. Coronary artery calcifications are present. Linear scarring is seen in bilateral lower lobes. Mild centrilobular and paraseptal emphysema is seen in bilateral upper lobes. No suspicious pulmonary nodule is identified. Limited examination of the upper abdomen demonstrates a subcentimeter left hepatic hypodensity that is too small to characterize. There are subacute/remote appearing fractures of the right lateral 8th and 9th ribs. Mild degenerative changes are seen in the spine. No acute osseous abnormality is identified. Impression: 1. No suspicious pulmonary nodule is identified (Lung-RADS 1). Recommend continued annual low-dose screening CT chest in 12 months. 2. Mild pulmonary emphysema. 3. Coronary artery calcifications. Category 1: Normal; continue annual screening Category 2: Benign appearance or behavior, continue annual screening Category 3: Probably benign, [address] recommended Category 4A: Suspicious, [address] recommended; may consider PET/CT Category 4B: Suspicious, Additional diagnostics and/or tissue sampling recommended Category 4X: Suspicious, Additional diagnostics and/or tissue sampling recommended Category 0: Recalls (incomplete screen due to Incomplete coverage, Noise, Respiratory motion, Expiration, Obscured by acute abnormality) This document has been electronically signed by: Ada Whiting on 10/31/2024 08:48:26 Dictated By: Ada Whiting MD Signed By: <Electronically signed by Ada Whiting MD in OV> 10/31/2449 DD/ 7 TD/TT: 10/31/24847 Cuprous Chloride Helper: [facility] External Provider IMG CT PROCEDURES Final Result documented in this encounter Visit Diagnoses Not on filedocumented in this encounter Additional Health Concerns Assessment Noted Time PHQ-9 Depression Total Score: 3 01/31/20 24 3:36 PM EDT documented as of this encounter Care Teams Trim Setter Helper Relationship Specialty Start Date End Date Zeeshan Houston MD [address] [place] [address] PCP - General Internal Medicine 02/10/12 documented as of this encounter
--- OUTSIDE RECORDS SUMMARY | 2024-11-15 10:33 | XMS_ITS | Continuity of Care Document ---
Author Organization [place] [facility], [facility] Address [address] [place] [address] Care Team Providers Care Library Aide Name Role Phone CURT BRAY Primary Care Provider [phone] Assessment Encounter Date Assessment Date Assessment LastModified [...] implanting the left ear with the Cochlear SysClass CI 632implant. After full discussion, the patient would like to proceed with surgery. I have provided patient with the contact information for my outsole scheduler. We will begin the scheduling process and see the patient back at the time of surgery. Patient will require medical clearance from their primary care provider preoperatively. Patient has been specifically instructed to contact Zeny Love with Cochlear to choose processors and accessories. Patient has been specifically instructed to contact his medical housekeeper Cielo Jacinto at the [facility] Cochlear Implant Program once he knows his surgical date to set up post implant mapping appointments. Not available 10/23/2024 11:33:37 Plan of Treatment Reminders Order Date Submit Date Provider Last Modified By Organization Details Last Modified Time Details Appointments SURGERY 150 2024 01:00P M IVA CASTELLANOS MD Not available Not available Not available Establish ed 15 2024 11:15A M WAQAR JEONG PA-C Not available Not available Not available Establish ed 10 2024 02:30P M IVA CASTELLANOS MD Not available Not available Not available Lab None recorded. Referral None recorded. Procedures None recorded. Surgeries cochlear device implantat ion (SURG) 2024 025 [email or web address] Not available 10/25/2024 10:06:11 Imaging None recorded. Medication Orders None recorded. Patient TargetsNo targets recorded. Patient InstructionsNo instructions recorded. Reason for Referral None Reported. Results Created Date Observation Date Name Description Value Unit Range Abnormal Flag Note LastModifiedBy Organization Detail LastModifiedTime 10/27/19 25 10/23/2024 CT, tempo ral bone, w/o contr ast No observ ation record ed. [email or web address] [facility] [address] [address], [place], [address], 10/29/2024 13:17:35 Result Notes None recorded. Problems Name Problem SNOMED Code Status Onset Date Resolution Date Notes Provider Name and Address Organization Details Recorded Time Sensorineural hearing loss of bilateral ears 170483412 Active 2023 IVA CASTELLANOS MD [address] [place] [address], [phone], [facility] - [facility] 4 16:56:20 Cerebral venous sinus thrombosis 454748165 Active 2023 IVA CASTELLANOS MD [address] [place] [address], [phone], [facility] 4 13:17:13 Problem Notes None recorded. Procedures Surgical History Date Name Laterality Status Provider Name and Address Organization Details Recorded Time CT temporal bones - Xoran completed IVA CASTELLANOS MD [address] [place] [address], [phone], [facility] - [facility] 10/23/2024 10:31:51 Imaging Results None recorded. [...] propionate 50 mcg/actuatio n nasal spray,suspen tadeo Hagerman 1 spray every day by intranasal route. [...] SNOMED-CT Code Diagnosis ICD10 Code Diagnosis Note [id number] IVA CASTELLANOS MD [facility] [address] [phone] 10/23/2024 10:10:46 10/23/2024 11:34:59 Sensorineural hearing loss of bilateral ears 582380195 H90.3 Health Concerns Section Related Observation LastModified by Organization Detai ls LastModified Time None Recorded Concern Status LastModified by Organization Details LastModified Time None Recorded Payers Encounter Date Sequence Insurance Name Policy Number Policy Dai Covered Member ID Dai Member ID Guarantor Name 10/23/2024 2 [place] [facility] Mundo A Penelope [id number] Mundo A Penelope 10/23/2024 1 MEDIC[place] B-[place] [employer] Mundo A Penelope [id number] Mundo A Penelope Notes Date Note Type [...] candidacy for cochlear implantation. IVA CASTELLANOS MD [address] [place] [address], [place], [phone], [facility] - [facility] 10/24/2024 16:57:20
--- OUTSIDE RECORDS SUMMARY | 2024-11-15 10:33 | XMS_ITS | Encounter Summary ---
Author Organization [employer] Address [address] [facility] 7t [place] [address] Care Team Providers Care Dry End Tester Name Role Phone Zeeshan Houston MD Primary Care Provider [phone] Encounter Details Date Type Department Care Team (Late st Contact Info) Description 04/26/2024 Telephone [facility] [address] [place] [address] Zeeshan Houston MD [address] [place], [place] [id number] Social History Tobacco Use Types Packs/Day Years [...] AM EDT documented as of this encounter Miscellaneous Notes * Telephone Encounter - Abida Silveira - 04/26/2024 1:32 PM EDT Safety and Incident Adult Live In Caregiver Abida Silveira called patient and left message for a call back. Contact information provided. When patient comes into the [facility] please contact advertising copywriter at [phone]. documented in this encounter Plan of Treatment Upcoming Encounters Date Type Department Care Team (Late st Contact Info) Description 02/14/2025 2:00 PM EDT Office Visit [facility] ADULT DENTAL [address] [place] [address] Candice Cruz documented as of this encounter Visit Diagnoses Not on filedocumented in this encounter Additional Health Concerns Assessment Noted Time PHQ-9 Depression Total Score: 3 01/31/20 24 3:36 PM EDT documented as of this encounter Care Teams Dry End Tester Relationship Specialty Start Date End Date Zeeshan Houston MD [address] [place] [address] PCP - General Internal Medicine 02/10/12 documented as of this encounter
--- OUTSIDE RECORDS SUMMARY | 2024-11-15 10:33 | XMS_ITS | Encounter Summary ---
Author Organization [employer] Address [address] [facility] 7 [place] [address] Care Team Providers Care Service Desk Specialist Name Role Phone Zeeshan Houston MD Primary Care Provider [phone] Reason for Visit * Reason Onset Date Comments Referral 04/02/2024 Encounter Details Date Type Department Care Team ([facility] st Contact Info) Description 04/02/2024 Telephone [facility] [address] [place] [address] Zeeshan Houston MD [address] [place] [address] Referral Social History Tobacco Use Types Packs/Day Years [...] encounter Miscellaneous Notes * Telephone Encounter - Amy Meza - 04/02/2024 12:20 PM EDT Tc from pt requesting a referral for [facility]. Pt is scheduled for a hearing test on 04/04. Please fax to [phone]. Any questions, contact pt at [phone] documented in this encounter Plan of Treatment Upcoming Encounters Date Type Department Care Team ([facility] st Contact Info) Description 02/14/2025 2:00 PM EDT Office Visit [facility] ADULT DENTAL [address] [place] [address] Candice Cruz documented as of this encounter Visit Diagnoses Not on filedocumented in this encounter Additional Health Concerns Assessment Noted Time PHQ-9 Depression Total Score: 3 01/31/20 24 3:36 PM EDT documented as of this encounter Care Teams Service Desk Specialist Relationship Specialty Start Date End Date Zeeshan Houston MD [address] [place] [address] PCP - General Internal Medicine 02/10/12 documented as of this encounter
--- OUTSIDE RECORDS SUMMARY | 2024-11-15 10:33 | XMS_ITS | Encounter Summary ---
Author Organization [employer] Address [address] [facility] 7t [place] [address] Care Team Providers Care Petroleum Products Sales Representative Name Role Phone Zeeshan Houston MD Primary Care Provider [phone]- [phone] Encounter Details Date Type Department Care Team (Late st Contact Info) Description 08/05/2023 Abstract [facility] MED[facility]INE [address] [place] [address] Zeeshan Houston MD [address] [place], [place] [id number] Social History Tobacco Use Types Packs/Day Years Used Date Smoking Tobacco: Every Day Cigarettes 1 58 Smokeless Tobacco: Never Comments:Currently Smokes 3 cig a day x the last 4 years. Depression Answer Date Recorded Patient Health Questionnaire-9 Score 3 10/05/2022 Housing Stability Answer Date Recorded What is your housing situation today? Not on crista e 07/25/[address] you li ve. Do you have problems with any of the following? None of the above 07/25/2023 Food Insecurity Answer Date Recorded Within the past 12 months, y ou worried that your food would run out before you got money to buy more: Never True 07/25/2023 Within the past 12 months,th e food you bought just didn't last and you didn't have enough money to get more: Never True Transportation Answer Date Recorded In the past 12 months, has l ack of transportation kept you from medical appts, meetings, work or from getting things needed for daily living? No 07/25/2023 Utilities Answer Date Recorded In the past 12 months, has t he [employer], [employer], oil or water company threatened to shut off services in your home? No 07/25/2023 Depression Answer Date Recorded Patient Health Questionnaire-2 Score 0 10/05/2022 Sex and Gender Information Value Date Recorded Sex Assigned at Male 08/09/2022 10:17 AM EDT Legal Sex Male 10:17 AM EDT Gender Identity Male 08/09/2022 10:17 AM EDT Sexual Orientation Straight 08/09/2022 10 :17 AM EDT documented as of this encounter Plan of Treatment Upcoming Encounters Date Type Department Care Team (Late st Contact Info) Description 02/14/2025 2:00 PM EDT Office Visit [facility] ADULT DENTAL [address] [place] [address] Candice Cruz documented as of this encounter Visit Diagnoses Not on filedocumented in this encounter Additional Health Concerns Assessment Noted Time PHQ-9 Depression Total Score: 3 10/05/20 22 9:45 AM EST documented as of this encounter Care Teams Petroleum Products Sales Representative Relationship Specialty Start Date End Date Zeeshan Houston MD [address] [place] [address] PCP - General Internal Medicine 02/10/12 documented as of this encounter
--- OUTSIDE RECORDS SUMMARY | 2024-11-15 10:33 | XMS_ITS | Encounter Summary ---
Author Organization [employer] Address [address] [facility] [address] 7[address] [place] [address] Care Team Providers Care Field Cane Scale Clerk Name Role Phone Zeeshan Houston MD Primary Care Provider [phone] Encounter Details Date Type Department Care Team (Latest Contact Info) Description 11/02/2024 Travel Social History Tobacco Use Types Packs/Day Years [...] Description 02/14/2025 2:00 PM EDT Office Visit [facility] ADULT DENTAL [address] [place] [address] Candice Cruz documented as of this encounter Visit Diagnoses Not on filedocumented in this encounter Additional Health Concerns Assessment Noted Time PHQ-9 Depression Total Score: 3 01/31/20 24 3:36 PM EDT documented as of this encounter Care Teams Field Cane Scale Clerk Relationship Specialty Start Date End Date Zeeshan Houston MD [address] [place] [address] PCP - General Internal Medicine 02/10/12 documented as of this encounter
--- OUTSIDE RECORDS SUMMARY | 2024-11-15 10:33 | XMS_ITS | Encounter Summary ---
Author Organization [employer] Address 75 [facility] 7 [place] [address] Care Team Providers Care Control Systems Eng Name Role Phone Zeeshan [place] MD Primary Care Provider [phone]- [phone] Reason for Visit * Reason Comments Pre-op Exam Encounter Details Date Type Department Care Team ([facility] st Contact Info) Description 11/15/2024 10:00 AM EST Office Visit [facility] CHC MED & PEDS [address] [place] [address] Zeeshan [place] MD [address] [place] [address] Pre-op evaluation (Primary Dx) Social History Tobacco Use Types [...] AM EDT documented as of this encounter Last Filed Vital Signs Vital Sign Reading Time Taken Comments Blood Pressure 123/68 11/15/2024 10:17 AM EST Pulse 80 11/15/2024 10:17 AM EST Temperature 36.7 ??C (98.1 ??F) 11/15/2024 1 0:17 AM EST Respiratory Rate 20 11/15/2024 10:1 7 AM EST Oxygen Saturation 99% 11/15/2024 10: 17 AM EST Inhaled Oxygen Concentration - - Weight 74.8 kg (164 lb 12.8 oz) 11/15/2024 10:17 AM EST Height 184 cm (6' 0.44 ) 11/15/2024 10: 17 AM EST with shoes on / pt refuse to take off Body Mass Index 22.08 11/15/2024 10:17 AM EST documented in this encounter Plan of Treatment Upcoming Encounters Date Type Department Care Team (Late st Contact Info) Description 02/14/2025 2:00 PM EDT Office Visit [facility]ULT [facility] [address] [place] [address] Candice Cruz Scheduled Orders Name Type Priority Associated Diagnoses Orde r Schedule CBC auto differential Lab Routine Pre-op evaluation Expected: 11/15/2024 (Approximate), Expires: 11/15/2025 Comprehensive Metabolic Panel Lab Routine Pre-op evaluation Expected: 11/15/2024 (Approximate), Expires: 11/15/2025 documented as of this encounter Procedures Procedure Name Priority Date/Time Associated Diagnosis Comments ECG 12-LEAD Routine 11/15/2024 10:29 AM EST Pre-op evaluation documented in this encounter Results * ECG 12 lead (11/15/2024 10:29 AM EST) Narrative Zeeshan [place] MD - 11/15/2024 10:29 AM EST HR 74 bpm. [place]: -20 degree. NSR. No signn of LAE/CARRIE. No hypertrophy. NO ST elevation/depression. Borderline EKG. us Zeeshan [place] MD ECG ORDERABLES Final Resul t documented in this encounter Visit Diagnoses Diagnosis Pre-op evaluation- Primary documented in this encounter Additional Health Concerns Assessment Noted Time PHQ-9 Depression Total Score: 3 01/31/20 24 3:36 PM EDT documented as of this encounter Care Teams Control Systems Eng Relationship Specialty Start Date End Date Zeeshan [place] MD [address] [place] [address] PCP - General Internal Medicine 02/10/12 documented as of this encounter
--- OUTSIDE RECORDS SUMMARY | 2024-11-15 10:33 | XMS_ITS | Encounter Summary ---
Author Organization [employer] [facility] Address [address] [place] [address] 7 [place] [address] Care Team Providers Care Hr Business Partner Consultant Name Role Phone Zeeshan [place] MD Primary Care Provider [phone]- [phone] Encounter Details Date Type Department Care Team (Late Contact Info) Description 11/10/2022 Orders Only [facility] MED & PEDS [address] [place], [place] [phone] Sreedhar Quarles, PharmD Social History Tobacco Use Types Packs/Day Years Used Date Smoking Tobacco: Every Day Cigarettes Smokeless Tobacco: Never Depression Answer Date Recorded Patient Health Questionnaire-9 Score 3 10/05/2022 Depression Answer Date Recorded Patient Health Questionnaire-2 [...] 02/14/2025 2:00 PM EDT Office Visit [facility] ADULT DENTAL [address] [place] [address] Candice Cruz documented as of this encounter Visit Diagnoses Not on filedocumented in this encounter Additional Health Concerns Assessment Noted Time PHQ-9 Depression Total Score: 3 10/05/20 22 9:45 AM EST documented as of this encounter Care Teams Hr Business Partner Consultant Relationship Specialty Start Date End Date Zeeshan [place] MD [address] [place] [address] PCP - General Internal Medicine 02/10/12 documented as of this encounter
--- OUTSIDE RECORDS SUMMARY | 2024-11-15 10:33 | XMS_ITS | Encounter Summary ---
Author Organization [employer] Address 75 [facility] 7 [place] [address] Care Team Providers Care Associate Director Financial Aid Name Role Phone Zeeshan [place] MD Primary Care Provider [phone]- [phone] Reason for Visit * Reason Onset Date Comments Immunizations 10/23/2024 Encounter Details Date Type Department Care Team ([facility] st Contact Info) Description 10/23/2024 Telephone [facility] CHC MED & PEDS [address] [place] [address] Zeeshan [place] MD [address] [place] [address] Immunizations Social History Tobacco Use Types Packs/Day Years [...] encounter Miscellaneous Notes * Telephone Encounter - Camilla Lozoya RN - 10/26/2024 3:20 PM EST TC to patient regarding needed vaccines needed. Has not gotten PVC-13 or PPSV- 23, so he would like to get the Prevnar 20. Pt offered appointment for 11/06 with nurses, but he would like a sooner appointment. Advised patient to go to immunization clinic in [place] for immunization. Directions given to patient. He stated verbal understanding. * Telephone Encounter - Berenice Reddy - 10/26/2024 1:39 PM EST Tc from pt returning call regarding last message. * Telephone Encounter - Berenice Reddy - 10/23/2024 2:49 PM EST Tc from pt calling to inform had a visit with ENT provider and was asked if he ever got the pcv-13 and ppsv23 vaccins? Please call pt to clarify. documented in this encounter Plan of Treatment Upcoming Encounters Date Type Department Care Team (Late st Contact Info) Description 02/14/2025 2:00 PM EDT Office Visit [facility] CHC ADULT DENTAL [address] [place], [place] [phone] Candice Cruz documented as of this encounter Visit Diagnoses Not on filedocumented in this encounter Additional Health Concerns Assessment Noted Time PHQ-9 Depression Total Score: 3 01/31/20 24 3:36 PM EDT documented as of this encounter Care Teams Associate Director Financial Aid Relationship Specialty Start Date End Date Zeeshan [place] MD [address] [facility] [place] [address] PCP - General Internal Medicine 02/10/12 documented as of this encounter
--- OUTSIDE RECORDS SUMMARY | 2024-11-15 10:33 | XMS_ITS | Encounter Summary ---
Author Organization [employer] Address 75 [facility] 7t [place] [address] Care Team Providers Care Injection Molding Machine Operator Name Role Phone Zeeshan [place] MD Primary Care Provider [phone]- [phone] Encounter Details Date Type Department Care Team (Late st Contact Info) Description 08/10/[address] [facility] MED[facility] [address] [place] [address] Zeeshan [place] MD [address] [place], [place] [phone] Social History Tobacco Use Types Packs/Day Years [...] the past 12 months, has t he [employer], oil or water company threatened to shut [...] 02/14/2025 2:00 PM EDT Office Visit [facility] ADULT DENTAL [address] [place] [address] Candice Cruz documented as of this encounter Procedures Procedure Name Priority Date/Time Associated Diagnosis Comments COLONOSCOPY Routine 11/30/2022 documented in this encounter Results * Hm Colonoscopy (11/30/2022) Colonoscopy Normal Normal Narrative Roxy Trotter - 11/30/2022 Repeat colonoscopy not recommended due to age us Historical Provider HEALTH MAINTENANCE Final Result documented in this encounter Visit Diagnoses Not on filedocumented in this encounter Additional Health Concerns Assessment Noted Time PHQ-9 Depression Total Score: 3 10/05/20 22 9:45 AM EST documented as of this encounter Care Teams Injection Molding Machine Operator Relationship Specialty Start Date End Date Zeeshan [place] MD [address] [place] [address] PCP - General Internal Medicine 02/10/12 documented as of this encounter
--- OUTSIDE RECORDS SUMMARY | 2024-11-15 10:33 | XMS_ITS | Encounter Summary ---
Author Organization [employer] Address 75 [facility] 7t [place] [address] Care Team Providers Care Teaching Supervisor Name Role Phone Zeeshan [place] MD Primary Care Provider +1- [phone] Encounter Details Date Type Department Care Team ([facility] st Contact Info) Description 07/27/2024 Orders Only [facility] CHC MED & PEDS [address] [place], [place] [phone] Zeeshan [place] MD [address] [place] [address] Closed fracture of multiple ribs of right side with delayed healing, subsequent encounter (Primary Dx) Social History Tobacco Use Types [...] 02/14/2025 2:00 PM EDT Office Visit [facility] ADULT DENTAL [address] [place] [address] Candice rCuz documented as of this encounter Visit Diagnoses Diagnosis Closed fracture of multiple ribs of right side with delayed healing, subsequent encounter- Primary documented in this encounter Additional Health Concerns Assessment Noted Time PHQ-9 Depression Total Score: 3 01/31/20 24 3:36 PM EDT documented as of this encounter Care Teams Teaching Supervisor Relationship Specialty Start Date End Date Zeeshan [place] MD [address] [place] [address] PCP - General Internal Medicine 02/10/12 documented as of this encounter
--- OUTSIDE RECORDS SUMMARY | 2024-11-15 10:33 | XMS_ITS | Data Portability ---
Author Organization [place] [facility] Address [address] [place] [address] Care Team Providers Care Gas Blender Name Role Phone CURT BRAY Primary Care Provider [phone] Assessment Encounter Date Assessment Date Assessment LastModified [...] implanting the left ear with the Cochlear [employer] CI 632implant. After full discussion, the patient would like to proceed with surgery. I have provided patient with the contact information for my surgical technologist. We will begin the scheduling process and see the patient back at the time of surgery. Patient will require medical clearance from their primary care provider preoperatively. Patient has been specifically instructed to contact Zeny Love with Cochlear to choose processors and accessories. Patient has been specifically instructed to contact his dry talc racker Cielo Jacinto at the [facility] Cochlear Implant Program once he knows his surgical date to set up post implant mapping appointments. [email or web address] Not available 10/23/2024 11:33:37 Plan of Treatment [...] cochlear device implantat ion (SURG) 2024 025 [email or web address] Not available 10/25/2024 10:06:11 Imaging MRI, brain + internal auditory canal, w/wo contrast - MRI, BRAIN + INTERNAL AUDITORY CANAL, W/WO CONTRAST 2023 024 [facility] ([facility]), [address] [facility], [place], [address], 04/10/2024 14:52:34 Medication Orders None recorded. Patient TargetsNo targets recorded. Patient InstructionsNo instructions recorded. Reason for Referral None Reported. Results Created Date Observation Date Name Description Value Unit Range Abnormal Flag Note LastModifiedBy Organization Detail LastModifiedTime 04/10/20 24 04/09/2024 MRI, brain + brain stem, w/wo contr ast [facility] Access ion Number : [id number] Patien t Name: Fred white, Mundo Pata l Record Number : [id number] Date of : 1949 Date of Exam: 2023 Referr ing Physic alicia: Mateo Castellanos re Ear Nose [address] [place] [address] Exam: MR Brain (C-/C+ ) CPT 82847 Room Descri ption: [facility] Verio 3.0T MRI of the brain [...] alomal acia is seen in the right workers compensation examiner ior inferi or occipi arturo lobe. Old [...] with contra st. There is an elonga ryan fillin g [...] will be docume nted in [facility] onnect Action able Findin senthil dye [place] [id number]. Electr onical ly Signed By: Dharmesh Davenport MD [email or web address] [place] [address] [facility] ([facility]) [address], [place], [address], 04/19/2024 13:16:38 05/03/20 24 05/03/2024 MR, angio gram, brain , w/wo contr ast [facility] Access ion Number : [id number] Stormy jack Name: Mundo Akins Record Number : [id number] Date of : 1949 Date of Exam: 2023 Referr ing Physic alicia: Mateo Castellanos re Ear Nose [address] [place] [address] Exam: MR Brain Angio (C-/C+ ) CPT 38426 Room Descri ption: [facility] Pion 3T MR Brain Angio (C-/C+ ) CPT 40763 HISTOR Y: Dizzin ess. Bilate ral hearin [...] onical ly Signed By: Dharmesh Davenport MD [email or web address] [facility] ([facility]) [address] [facility], [place], [address], 05/20/2024 07:48:44 05/29/2007/12/2023 imagi ng/di agnos tic resul t No observ ation record ed. [email or web address] Not Available 21:42:53 05/29/2007/20/2023 imagi ng/di agnos tic resul t No observ ation record ed. [email or web address] Not Available 21:42:54 05/29/2007/20/2023 cochl ear impla nt deter minat ion form* No observ ation record ed. [email or web address] Not Available 2024 10:32:52 10/27/1910/23/2024 CT, tempo ral bone, w/o contr ast No observ ation record ed. [email or web address] [facility] [address], [address], 10/29/2024 13:17:35 Result Notes None recorded. Problems Name Problem SNOMED Code Status Onset Date Resolution Date Notes Provider Name and Address Organization Details Recorded Time Sensorineural hearing loss of bilateral ears 219826547 Active 2023 IVA CASTELLANOS MD [address] [address], [place], [phone], [facility] - [facility] 16:56:20 Cerebral venous sinus thrombosis 908654274 Active 2023 IVA CASTELLANOS MD [address] [address], [place], [phone], [facility] - [facility] 13:17:13 Problem Notes None recorded. Procedures Surgical History Date Name Laterality Status Provider Name and Address Organization Details Recorded Time CT temporal bones - Xoran completed IVA CASTELLANOS MD [address] [place] [address], [phone], [facility] 10/23/2024 10:31:51 Imaging Results Imaging Date Name Status LastModified by Organization Details LastModified Time 04/09/2024 MRI, brain + brain stem, w/wo contrast completed [address] [facility] ([facility]) [address], [place], [address], 04/19/2024 13:16:38 05/03/2024 MR, angiogram, brain, w/wo contrast completed [address] [facility] ([facility]) [address], [place], [address], 05/20/2024 07:48:44 07/12/2023 imaging/diagnosti c result completed Information not available 05/29/2024 21:42:53 07/20/2023 imaging/diagnosti c result completed Information not available 05/29/2024 21:42:54 07/20/2023 cochlear implant determination form* completed [email or web address] Information not available 10/23/2024 10:32:52 10/23/2024 CT, temporal bone, w/o contrast completed [email or web address] [facility] [address] [facility] [address], [place], [address], 10/29/2024 13:17:35 Procedure Notes None recorded. Medical [...] propionate 50 mcg/actuatio n nasal spray,suspen amina [place] 1 spray every day by intranasal route. [...] Note [id number] IVA CASTELLANOS MD [facility] [address] [address] 03/29/2024 14:02:51 03/29/2024 15:13:02 Sensorineural hearing loss of bilateral ears 104122360 H90.3 Patient's audiogram is demonstrat ing an [...] provided him medical clearance to return to [facility] audiology to discuss this in more detail. [id number] IVA CASTELLANOS MD [facility] [address] [address] 10/23/2024 10:10:46 10/23/2024 11:34:59 Sensorineural hearing loss of bilateral ears 248649606 H90.3 Health Concerns Section Related Observation LastModified by Organization Detai ls LastModified Time None Recorded Concern Status LastModified by Organization Details LastModified Time None Recorded Advance Directives Directive None Recorded Payers Encounter Date Sequence Insurance Name Policy Number Policy Dai Covered Member ID Dai Member ID Guarantor Name 03/29/2024 2 [place] [facility] Umndo A Penelope [id number] Mundo A Penelope 03/29/2024 1 [place] [employer] Mundo A Penelope [id number] Mundo A Penelope 10/23/2024 2 [place] [facility] Mundo A Penelope [id number] Mundo A Penelope 10/23/2024 1 [place] [employer] Mundo A Penelope [id number] Mundo A Penelope Notes Date Note Type [...] than right. Patient had audiometric testing at [facility] audiology which showed mild to moderately severe sensorineural hearing loss in the right ear and a severe to profound sensorineural hearing loss in the left ear. Patient underwent formal cochlear implant evaluation and was found to meet the audiologic candidacy criteria for cochlear implantation in the left ear. IVA CASTELLANOS MD [address], [address], [facility] 03/29/2024 16:46:59 10/23/2024 text/html Patient had left [...] candidacy for cochlear implantation. IVA CASTELLANOS MD [address] [place] [address],[address], [address], [facility] 10/24/2024 16:57:20
--- OUTSIDE RECORDS SUMMARY | 2024-11-15 10:33 | XMS_ITS | Encounter Summary ---
Author Organization [employer] Address [address] [facility] [address] 7t [place] [address] Care Team Providers Care Public Records Researcher Name Role Phone Zeeshan [place] MD Primary Care Provider [phone] Encounter Details Date Type Department Care Team (Latest Contact Info) Description 11/15/2024 Travel Social History Tobacco Use Types Packs/Day [...] Description 02/14/2025 2:00 PM EDT Office Visit [facility] ADULT DENTAL [address] [place] [address] Candice Cruz documented as of this encounter Visit Diagnoses Not on filedocumented in this encounter Additional Health Concerns Assessment Noted Time PHQ-9 Depression Total Score: 3 01/31/20 24 3:36 PM EDT documented as of this encounter Care Teams Public Records Researcher Relationship Specialty Start Date End Date Zeeshan [place] MD [address] [place] [address] PCP - General Internal Medicine 02/10/12 documented as of this encounter
--- OUTSIDE RECORDS SUMMARY | 2024-11-15 10:33 | XMS_ITS | Encounter Summary ---
Author Organization [employer] Address 75 [facility] 7t [place] [address] Care Team Providers Care Fisher Diver Net Name Role Phone Zeeshan [place] MD Primary Care Provider [phone]- [phone] Encounter Details Date Type Department Care Team ([facility] st Contact Info) Description 06/27/2024 Orders Only [facility] CHC MED & PEDS [address] [place], [place] [phone] Zeeshan [place] MD [address] [place] [address] Dizziness (Primary Dx) Social History Tobacco Use Types [...] as of this encounter Miscellaneous Notes * Result Encounter Note - Zeeshan [place] MD - 06/27/2024 1:50 PM EDT KAELEI. Lidocaine ointment sent to [facility] pharmacy. documented in this encounter Plan of Treatment Upcoming Encounters Date Type Department Care Team (Late st Contact Info) Description 02/14/2025 2:00 PM EDT Office Visit [facility] ADULT DENTAL [address] [place] [address] Candice Cruz documented as of this encounter Procedures Procedure Name Priority Date/Time Associated Diagnosis Comments XR RIBS 3 VIEWS BILATERAL WITH CHEST POSTEROANTERIOR Routine 07/27/2024 12:00 PM EDT documented in this encounter Results * XR Rib 3 Views Bilateral with Chest Posteroanterior (07/27/2024 12:00 PM EDT) Anatomical Region Laterality Modality Rib, Abdomen Bilateral Radiographic Naz ging 07/27/2024 12:0 0 PM EDT Narrative 07/27/2024 4:14 PM EDT ? [facility] ?[address] ?[place] [address] ?XRay Report ? Signed ? Patient: Penelope,Mundo A ?MR#: [id number] ?? [id number] ? : 1950 ?Acct:[id number] ? Age/Sex: 74 / M ?ADM Date: 10/18/24 ? Loc: HO.XRAY ? Attending Dr: Liane Zarate MD ? Ordering Physician: Liane Zarate MD ?? Date of Service: 07/27/24 ?? Procedure(s): XR ribs BI 3V ?? Accession Number(s): [id number] ? cc: Zeeshan [place] MD; Liane Zarate MD ? EXAMINATION: ?? XR RIBS, BILATERAL ? CLINICAL INFORMATION: ?? Right-sided rib pain. ? COMPARISON: ?? CT chest 04/08/2023. ? TECHNIQUE: ?? 3 views of the bilateral ribs were obtained. ? FINDINGS: ?? Mildly displaced fracture of the right anterior eighth and ninth ribs. ? Normal appearance of the cardiomediastinal silhouette. ? No focal consolidation, pleural effusion or pneumothorax. ? XR/XR ribs BI 3V ?? IMPRESSION: ?? 1. ??Mildly displaced fractures of the right anterior eighth and ninth ?? ribs. ?? 2. ??No acute cardiopulmonary findings. ? Electronically signed by: ??Mariella Dennison MD ??07/27/2024 04:11 PM EDT RP ? Dictated By: ?Mariella Dennison ? Signed By: ?<Electronically signed by Mariella Dennison in OV> ?07/27/24 1611 ? DD/ 1200 ? TD/TT: 07/27/24 1224 ? Director Of Regulatory Affairs: ? Procedure Note Erwin Mcarthur - 07/27/[address] [address] XRay Report Signed Patient: Mundo Negrete [facility]#: [id number] : 2Acct:[id number] Age/Sex: 74 / MADM Date: 07/27/24 Loc: VLAD Attending Dr: Liane Zarate MD Ordering Physician: Liane Zarate MD Date of Service: 07/27/24 Procedure(s): XR ribs BI 3V Accession Number(s): [id number] cc: Zeeshan [place] MD; Liane Zarate MD EXAMINATION: XR RIBS, BILATERAL CLINICAL INFORMATION: Right-sided rib pain. COMPARISON: CT chest 04/08/2023. TECHNIQUE: 3 views of the bilateral ribs were obtained. FINDINGS: Mildly displaced fracture of the right anterior eighth and ninth ribs. Normal appearance of the cardiomediastinal silhouette. No focal consolidation, pleural effusion or pneumothorax. XR/XR ribs BI 3V IMPRESSION: 1. Mildly displaced fractures of the right anterior eighth and ninth ribs. 2. No acute cardiopulmonary findings. Electronically signed by: Mariella Dennison MD 07/27/2024 04:11 PM EDT RP Dictated By: Mariella Dennison Signed By: <Electronically signed by Mariella Dennison in OV> 07/27/24 1611 DD/ 1200 TD/TT: 07/27/24 1224 Director Of Regulatory Affairs: us Liane Zarate MD IMG XR PROCEDURES Final Resul t documented in this encounter Visit Diagnoses Diagnosis Dizziness- Primary Dizziness and giddiness documented in this encounter Additional Health Concerns Assessment Noted Time PHQ-9 Depression Total Score: 3 01/31/20 24 3:36 PM EDT documented as of this encounter Care Teams Fisher Diver Net Relationship Specialty Start Date End Date Zeeshan [place] MD [address] [place] [address] PCP - General Internal Medicine 02/10/12 documented as of this encounter
--- OUTSIDE RECORDS SUMMARY | 2024-11-15 10:33 | XMS_ITS | Encounter Summary ---
Author Organization [employer] Address [address] [place] [address] 7 [place] [address] Care Team Providers Care Vice President Of Nursing Name Role Phone Zeeshan Houston MD Primary Care Provider +1- [phone] Reason for Referral * Consultation (Routine) - Closed Specialty Diagnoses / Procedures Referred By Contac t Referred To Contact Diagnoses Decreased hearing of both ears Procedures Hearing aid biaural evaluation Zeeshan Houston MD [address] [place] [address] Phone: tel: fax: Referral ID Status Reason Start Date Expiration Date Visits Re quested Visits Authorized [id number] Closed 04/02/2024 04/02/2025 1 1 Encounter Details Date Type Department Care Team ([facility] st Contact Info) Description 04/02/2024 Orders Only [facility] CHC MED & PEDS [address] [place] [address] Zeeshan Houston MD [address] [place] [address] Decreased hearing of both ears (Primary Dx) Social History Tobacco Use Types [...] Description 02/14/2025 2:00 PM EDT Office Visit [facility] ADULT DENTAL [address] [place] [address] Candice Cruz Scheduled Orders Name Type Priority Associated Diagnoses Orde r Schedule Hearing aid biaural evaluation Audiology Routine Decreased hearing of both ears Expected: 04/02/2024 (Approximate), Expires: 04/02/2025 documented as of this encounter Visit Diagnoses Diagnosis Decreased hearing of both ears- Primary documented in this encounter Additional Health Concerns Assessment Noted Time PHQ-9 Depression Total Score: 3 01/31/20 24 3:36 PM EDT documented as of this encounter Care Teams Vice President Of Nursing Relationship Specialty Start Date End Date Zeeshan Houston MD [address] [place] [address] PCP - General Internal Medicine 02/10/12 documented as of this encounter
--- OUTSIDE RECORDS SUMMARY | 2024-11-15 10:33 | XMS_ITS | Encounter Summary ---
Author Organization [employer] Address [address] [facility] 7t [place] [address] Care Team Providers Care Teaching Associate Name Role Phone Zeeshan Houston MD Primary Care Provider +1- [phone] Encounter Details Date Type Department Care Team ([facility] st Contact Info) Description 03/08/2024 Orders Only [facility] CHC MED & PEDS [address] [place], [place] [phone] Zeeshan Houston MD [address] [place] [address] Social History Tobacco Use Types Packs/Day Years [...] [facility] ADULT DENTAL [address] [place] [address] Candice Cruz documented as of this encounter Visit Diagnoses Not on filedocumented in this encounter Additional Health Concerns Assessment Noted Time PHQ-9 Depression Total Score: 3 01/31/20 24 3:36 PM EDT documented as of this encounter Care Teams Teaching Associate Relationship Specialty Start Date End Date Zeeshan Houston MD [address] [place] [address] PCP - General Internal Medicine 02/10/12 documented as of this encounter
--- OUTSIDE RECORDS SUMMARY | 2024-11-15 10:33 | XMS_ITS | Encounter Summary ---
Author Organization [employer] Address [address] [facility] 7t [place] [address] Care Team Providers Care Circular Saw Edge Fuser Name Role Phone Zeeshan Houston MD Primary Care Provider +1- [phone] Reason for Visit * Reason Comments Med Refill Encounter Details Date Type Department Care Team ([facility] st Contact Info) Description 04/06/2024 Refill [facility] CHC MED & PEDS [address] [place], [place] [phone] Zeeshan Houston MD [address] [place] [address] Post-nasal drip Social History Tobacco Use Types Packs/Day Years [...] 2:00 PM EDT Office Visit [facility] ADULT DENTAL [address] [place] [address] Candice Cruz documented as of this encounter Visit Diagnoses Diagnosis Post-nasal drip Postnasal drip documented in this encounter Additional Health Concerns Assessment Noted Time PHQ-9 Depression Total Score: 3 01/31/20 24 3:36 PM EDT documented as of this encounter Care Teams Circular Saw Edge Fuser Relationship Specialty Start Date End Date Zeeshan Houston MD [address] [place] [address] PCP - General Internal Medicine 02/10/12 documented as of this encounter
--- OUTSIDE RECORDS SUMMARY | 2024-11-15 10:33 | XMS_ITS | Encounter Summary ---
Author Organization [employer] Address [address] [facility] 7t [place] [address] Care Team Providers Care Puppet Engineer Name Role Phone Zeeshan Houston MD Primary Care Provider Encounter Details Date Type Department Care Team (Late st Contact Info) Description 11/30/2022 Orders Only [facility] MED & PEDS [address] [place], [place] [phone] Zeeshan Houston MD [address] [place] [address] Muscle spasms of neck (Primary Dx) Social History Tobacco Use Types [...] [facility] ADULT DENTAL [address] [place] [address] Candice Cruz documented as of this encounter Procedures Procedure Name Priority Date/Time Associated Diagnosis Comments HEMATOXYLIN AND EOSIN STAIN Routine 11/30/2022 3:01 PM EST Muscle spasms of neck documented in this encounter Results * Hematoxylin and Eosin Stain (11/30/2022 3:01 PM EST) 11/30/2022 3:01 PM EST 12/01/2022 10:12 AM EST Narrative [facility] - 12/06/2022 10:34 AM EST ----- ------- Name: Mundo Negrete ? Age/Sex: 72/M ? : 1950 Unit#: [id number] ?? Attend Dr: Karen Pedraza MD ?Re11/30/22 ?Status: DEP SDC ? Location: [facility] ?Disch: ? ----- ------- SPEC : [id number] ?RECD: 12/01/22-1011 ? STATUS: ??SOUT ? REQ NUM: [id number] ? AURA: 11/30/22-1501 ? SUBM DR: Karen Pedraza MD ? ENTERED: ??12/01/22-1307 ?SP TYPE: Surgical ? OTHR DR: Zeeshan Houston MD ? ORDERED: ??HE Stain/25, PAS, Gross Micro L4/10, IHC/5, Special st. 2, H. pylori/5 ?Addendum Addendum ??1 ?Entered: 12/06/22-1032 (H): ??(H): ??PAS stain is negative and does not identify glycogenic acanthosis. ??Control stains appropriately. Addendum Signed (signature on file) Dorothy Alyse 12/06/22 1034 ? ----- ------- ? Diagnosis ?? A. ??Duodenum, biopsy: ??Duodenal mucosa with predominantly preserved villi and no specific ?? change (3 pieces), and one piece with tightly packed gastric glands with parietal and ?? 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 ? B. ??Duodenal, polyp: ??Gastric foveolar surface epithelium with tightly packed gastric ?? glands with parietal and chief cells, consistent with gastric heterotopia (2 pieces); ?? negative for dysplasia, and one piece of duodenal mucosa with preserved villi and ?? hyperplastic Georgia's glands. ? C. ??Gastric antrum, lesser curvature, biopsy: ??Gastric antral mucosa with congestion, ?? mild reactive changes, and focal minimal inactive inflammation; negative for H. pylori, ?? intestinal metaplasia and dysplasia. ? D. ??Gastric antrum, greater curvature, biopsy: ??Gastric antral mucosa with congestion, ?? mild reactive changes, and focal minimal inactive inflammation; negative for H. pylori, ?? intestinal metaplasia and dysplasia. ? E. ??Gastric incisura, biopsy: ??Gastric antral mucosa with mild reactive changes, and ?? focal minimal inactive inflammation; negative for H. pylori, intestinal metaplasia and ?? dysplasia. ? F. ??Gastric body, lesser curvature, biopsy: ??Gastric body mucosa with congestion and ?? minimal chronic inactive gastritis; negative for H. pylori, intestinal metaplasia and ?? dysplasia. ? G. ??Gastric body, greater curvature, biopsy: ??Gastric body mucosa with congestion and ?? minimal chronic inactive gastritis; negative for H. pylori, intestinal metaplasia and ?? dysplasia. ? CONTINUED ON NEXT PAGE ----- ------- Name: Mundo Negrete ? Age/Sex: 72/M ? : 1950 Unit#: [id number] ?? Attend Dr: Karen Pedraza MD ?Re11/30/22 ?Status: DEP SDC ? Location: [facility] ?Disch: ? ----- ------- SPEC : [id number] ?RECD: 12/01/22-1012 ? STATUS: ??SOUT ? REQ NUM: [id number] ? AURA: 11/30/22-1501 ? SUBM DR: Karen Pedraza MD ? ENTERED: ??12/01/22-1307 ?SP TYPE: Surgical ? OTHR DR: Zeeshan Houston MD ? ORDERED: ??HE Stain/25, PAS, Gross Micro L4/10, IHC/5, Special st. 2, H. pylori/5 ? Diagnosis ?(Continued) ? H. ??Esophagus, biopsy: ??Squamous mucosa with mild hyperplasia and few superficial ?? epithelial cells with abundant pale cytoplasm, otherwise no specific change (PAS pending; ?? addendum to follow); no columnar mucosa present. ? I. ??Colon, right, biopsy: ??Colonic mucosa with no specific change; no colitis, granulomas ?? or dysplasia. ? J. ??Colon, left, biopsy: ??Colonic mucosa with no specific change; no colitis, granulomas ?? or dysplasia. ?Clinical History Pre-Op Dx: ??Anemia, weight loss Post-Op Dx: Upper: abnormal gastric mucosa, polyp, r/o glycogenic acanthosis; Lower: hemorrhoids ?Microscopic Description Microscopic sections reviewed.? Immunohistochemical stains for H. pylori on C, D, E, F and G are negative with appropriate control. ? Material Received ?? A. Duodenum bx's ?? B. Duodenum polyp ?? C. Antrum lesser curvature bx's ?? D. Antrum greater curvature bx's ?? E. Incisura bx's ?? F. Body lesser curvature bx's ?? G. Body greater curvature bx's ?? H. Esophagus bx's, r/o glycogenic acanthosis ?? I. Right side colon bx's ?? J. Left side colon bx's ? Gross Description Received in ten parts. Part A: ??Received in formalin labeled Duodenum bx's are four glistening, semitranslucent, soft, velvety, ochoa, irregular tissue fragments, each measuring 0.25 cm. in greatest dimension, which are submitted in toto in a single cassette labeled A. ? CONTINUED ON NEXT PAGE ----- ------- Name: Mundo Negrete ? Age/Sex: 72/M ? : 1950 Unit#: [id number] ?? Attend Dr: Karen Pedraza MD ?Re11/30/22 ?Status: DEP NHC ? Location: [facility] ?Disch: ? ----- ------- SPEC : [id number] ?RECD: 12/01/22-1012 ? STATUS: ??SOUT ? REQ NUM: [id number] ? AURA: 11/30/22-1501 ? SUBM DR: Karen Pedraza MD ? ENTERED: ??12/01/22-1307 ?SP TYPE: Surgical ? OTHR DR: Zeeshan Houston MD ? ORDERED: ??HE Stain/25, PAS, Gross Micro L4/10, IHC/5, Special st. 2, H. pylori/5 ? Gross Description ?(Continued) Part B: ??Received in formalin labeled Duodenum polyp are three glistening, semitranslucent, soft, ochoa, irregular tissue fragments, ranging from 0.2 to 0.3 cm. in greatest dimension, which are submitted in toto in a single cassette labeled B. Part C: ??Received in formalin labeled Antrum lesser curvature bx's are two glistening, semitranslucent, ferreira-ochoa, irregular tissue fragments, each measuring 0.3 cm. in greatest dimension, which are submitted in toto in a single cassette labeled C. Part D: ??Received in formalin labeled Bx's antrum greater curvature are two glistening, semitranslucent, soft, ochoa, irregular tissue fragments, measuring 0.1 and 0.3 cm. in greatest dimension, which are submitted in toto in a single cassette labeled D. Part E: ??Received in formalin labeled Bx's incisura are two glistening, semitranslucent, rubbery, ochoa, irregular tissue fragments, measuring 0.1 and 0.25 cm. in greatest dimension, which are submitted in toto in a single cassette labeled E. Part F: ??Received in formalin labeled Bx's body lesser curvature are two glistening, semitranslucent, rubbery, ochoa, irregular tissue fragments, measuring 0.2 and 0.3 cm. in greatest dimension, which are submitted in toto in a single cassette labeled F. Part G: ??Received in formalin labeled Bx's (sic) body greater curvature is a 0.5 cm. in greatest dimension, glistening, semitranslucent, ochoa, rectangular tissue fragment, which is submitted in toto in a single cassette labeled G. Part H: ??Received in formalin labeled Lower esophagus bx's, r/o glycogenic acanthosis are two glistening, semitranslucent, pale, ferreira-ochoa, irregular tissue fragments, each measuring 0.25 cm. in greatest dimension, which are submitted in toto in a single cassette H. Part I: ??Received in formalin labeled Right side colon bx's are six glistening, semitranslucent, ferreira-ochoa, irregular and rectangular tissue fragments, ranging from 0.25 to 0.35 cm. in greatest dimension, which are submitted in toto in a single cassette labeled I. Part J: ??Received in formalin labeled Left side colon bx's are five glistening, semitranslucent, ferreira-ochoa, irregular and rectangular tissue fragments, ranging from 0.1 to 0.4 cm. in greatest dimension, which are submitted in toto in a single cassette labeled J. CEDS Special studies ordered and performed: immunostain for H. pylori on C1, D1, E1, F1, and G1. PAS on H1. ? CONTINUED ON NEXT PAGE ----- ------- Name: Mundo Negrete ? Age/Sex: 72/M ? : 1950 Unit#: [id number] ?? Attend Dr: Karen Pedraza MD ?Re11/30/22 ?Status: DEP SDC ? Location: [facility] ?Disch: ? ----- ------- SPEC : [id number] ?RECD: 12/01/22-1012 ? STATUS: ??SOUT ? REQ NUM: [id number] ? AURA: 11/30/22-1501 ? SUBM DR: Karen Pedraza MD ? ENTERED: ??12/01/22-1306 ?SP TYPE: Surgical ? OTHR DR: Zeeshan Houston MD ? ORDERED: ??HE Stain/25, PAS, Gross Micro L4/10, IHC/5, Special st. 2, H. pylori/5 ? Copies To: ?? Zeeshan Houston MD ?? [address] ?? [place] [address] ? Karen Pedraza MD ?? [address] ?? [place] [address] ?? [phone] ?? [email or web address] ----- ------- Signed (signature on file) Dorothy Cullen 12/04/22 1246 ? ----- ------- ? END OF REPORT ? us [facility] External Provider LAB BLO OD ORDERABLES Final Result [facility] [address] [place] [address] [phone] documented in this encounter Visit Diagnoses Diagnosis Muscle spasms of neck- Primary documented in this encounter Additional Health Concerns Assessment Noted Time PHQ-9 Depression Total Score: 3 10/05/20 22 9:45 AM EST documented as of this encounter Care Teams Puppet Engineer Relationship Specialty Start Date End Date Zeeshan Houston MD [address] [place] [address] PCP - General Internal Medicine 02/10/12 documented as of this encounter
--- OUTSIDE RECORDS SUMMARY | 2024-11-15 10:33 | XMS_ITS | Encounter Summary ---
Author Organization [employer] Address [address] [facility] 7t [place] [address] Care Team Providers Care Plumbing Designer Name Role Phone Zeeshan Houston MD Primary Care Provider +1- [phone] Reason for Visit * Reason Onset Date Comments Returning Call 07/10/2024 Encounter Details Date Type Department Care Team (Late st Contact Info) Description 07/10/2024 Telephone [facility] MEDICINE [address] [place] [address] Zeeshan Houston MD [address] [facility] [place] [address] Returning Call Social History Tobacco Use Types Packs/Day Years [...] encounter Miscellaneous Notes * Telephone Encounter - Gregor Jane - 07/10/2024 10:57 AM EDT Tc from pt stated he received a call. Pt attempted to listen to VM but stating his phone machine only allowed for the ending portion to play out only giving him the number so pt is unsure on who exactly reached out. documented in this encounter Plan of Treatment Upcoming Encounters Date Type Department Care Team (Late st Contact Info) Description 02/14/2025 2:00 PM EDT Office Visit [facility] ADULT DENTAL [address] [place] [address] Candice Cruz documented as of this encounter Visit Diagnoses Not on filedocumented in this encounter Additional Health Concerns Assessment Noted Time PHQ-9 Depression Total Score: 3 01/31/20 24 3:36 PM EDT documented as of this encounter Care Teams Plumbing Designer Relationship Specialty Start Date End Date Zeeshan Houston MD [address] [place] [address] PCP - General Internal Medicine 02/10/12 documented as of this encounter
--- OUTSIDE RECORDS SUMMARY | 2024-11-15 10:33 | XMS_ITS | Encounter Summary ---
Author Organization [employer] Address [address] [facility] 7t [place] [address] Care Team Providers Care Vp Of Digital Marketing Name Role Phone Zeeshan Houston MD Primary Care Provider +1- [phone] Reason for Visit * Reason Onset Date Comments Pre-op Exam 10/25/2024 Encounter Details Date Type Department Care Team (Late st Contact Info) Description 10/25/2024 Telephone [facility] MEDICINE [address] [place] [address] Zeeshan Houston MD [address] [place] [address] Pre-op Exam Social History Tobacco Use Types Packs/Day Years [...] your housing situation today? I have libby devin 01/25/[address] you li [...] encounter Miscellaneous Notes * Telephone Encounter - Heather Roberson - 10/31/2024 11:29 AM EST Incoming call from Beth regarding pre op appointment. Agreed to contact pt and advise of pre opappointment on 11/15/24 with PCP Rosemarie. Appointment reminder letter mailed * Telephone Encounter - Heather Roberson - 10/31/2024 10:49 AM EST Outgoing call to Beth at [facility] regarding pre op appointment. No answer. LV. * Telephone Encounter - Ary Smith - 10/25/2024 4:06 PM EST Date of Surgery: 11/23 Surgical procedure being done: Cochlear implant Type of anesthesia: general anesthesia Lab needed: Yes EKG: Yes Surgeon's name: Wade Arceo Facility name: [facility] Surgeon's office number: [phone] Surgeon's office fax number: [phone] Contact name (person you spoke with): Beth Last office note from surgeon requested: Yes Send Message to Heather Roberson and Eloy Cobb documented in this encounter Plan of Treatment Upcoming Encounters Date Type Department Care Team (Late st Contact Info) Description 02/14/2025 2:00 PM EDT Office Visit [facility] ADULT DENTAL [address] [place] [address] Candice Cruz documented as of this encounter Visit Diagnoses Not on filedocumented in this encounter Additional Health Concerns Assessment Noted Time PHQ-9 Depression Total Score: 3 01/31/20 24 3:36 PM EDT documented as of this encounter Care Teams Vp Of Digital Marketing Relationship Specialty Start Date End Date Zeeshan Houston MD [address] [place] [address] PCP - General Internal Medicine 02/10/12 documented as of this encounter
--- OUTSIDE RECORDS SUMMARY | 2024-11-15 10:33 | XMS_ITS | Encounter Summary ---
Author Organization [employer] Address [address] [facility] 7t [place] [address] Care Team Providers Care Electron Beam Operator Name Role Phone Zeeshan Houston MD Primary Care Provider +1- [phone] Encounter Details Date Type Department Care Team (Late Contact Info) Description 10/27/2022 Orders Only [facility] MEDICINE [address] [place] [address] Zeeshan Houston MD [address] [place], [place] [phone] Muscle spasms of neck (Primary Dx) Social [...] Orientation Straight 08/09/2022 10 :17 AM EDT COVID-19 Exposure Response Date Recorded In the last 10 days, have yo u been in contact with someone who was confirmed or suspected to have Coronavirus/COVID-19? No / Unsure 10/05/2022 9:32 AM EST documented as of this encounter Plan of Treatment Upcoming Encounters Date Type Department Care Team (Late Contact Info) Description 02/14/2025 2:00 PM EDT Office Visit [facility] CHC ADULT DENTAL [address] [place], [place] [phone] Candice Cruz documented as of this encounter Visit Diagnoses Diagnosis Muscle spasms of neck- Primary documented in this encounter Additional Health Concerns Assessment Noted Time PHQ-9 Depression Total Score: 3 10/05/20 22 9:45 AM EST documented as of this encounter Care Teams Electron Beam Operator Relationship Specialty Start Date End Date Zeeshan Houston MD [address] [place] [address] PCP - General Internal Medicine 02/10/12 documented as of this encounter
--- OUTSIDE RECORDS SUMMARY | 2024-11-15 10:33 | XMS_ITS | Encounter Summary ---
Author Organization [employer] Address [address] [facility] 7t [place] [address] Care Team Providers Care Geologist Name Role Phone eZeshan Houston MD Primary Care Provider +1- [phone] Reason for Visit * Reason Comments Med Refill Encounter Details Date Type Department Care Team ([facility] st Contact Info) Description 04/13/2024 Refill [facility] CHC MED & PEDS [address] [place], [place] [phone] Zeeshan Houston MD [address] [place] [address] Non-seasonal allergic rhinitis, unspecified trigger Social History Tobacco Use Types Packs/Day Years [...] Upcoming Encounters Date Type Department Care Team ([facility] st Contact Info) Description 02/14/2025 2:00 PM EDT Office Visit [facility] ADULT DENTAL [address] [place] [address] Candice Cruz documented as of this encounter Visit Diagnoses Diagnosis Non-seasonal allergic rhinitis, unspecified trigger documented in this encounter Additional Health Concerns Assessment Noted Time PHQ-9 Depression Total Score: 3 01/31/20 24 3:36 PM EDT documented as of this encounter Care Teams Geologist Relationship Specialty Start Date End Date Zeeshan Houston MD [address] [place] [address] PCP - General Internal Medicine 02/10/12 documented as of this encounter
--- OUTSIDE RECORDS SUMMARY | 2024-11-15 10:33 | XMS_ITS | Clinical Summary ---
Author Organization [employer] Address [address] [facility] [address] [place] [address] Care Team Providers Care Improvement Advisor Name Role Phone Zeeshan Houston MD Primary Care Provider [phone] Allergies No known active allergies Medications * This document contains information received from the source organization and may not represent a complete record from that organization. omeprazole (PriLOSEC) [address] capsule 4 Active famotidine (Pepcid) 20 MG tabletIndication s:Post-nasal drip Take 1 tablet (20 mg) by mouth at bedtime. 30 tablet 11 4 01/31/20 25 Active Chest Congestion Relief 100 MG/5ML liquid TAKE 10 ml's THREE TIMES DAILY NEEDED FOR COUGH 120 mL 4 Active pseudoephedrine (Sudafed) 30 MG tabletIndication s:Decreased hearing of both ears Take 1 tablet (30 mg) by mouth every 4 (four) hours if needed for congestion for up to 10 days. 30 tablet 4 Active fluticasone (Flonase) 50 MCG/ACT nasal sprayIndications :Non-seasonal allergic rhinitis, unspecified trigger Administer 1 spray into each nostril 2 times daily. Shake gently. Before first use, prime pump. After use, clean tip and replace cap. 16 g 3 4 Active lidocaine (Xylocaine) 5 % ointmentIndicati ons:Closed fracture of multiple ribs of right side with delayed healing, subsequent encounter Apply topically if needed for mild pain. 50 g 4 07/30/20 25 Active ibuprofen 600 MG tablet TAKE ONE TABLET EVERY 8 HOURS NEEDED FOR PAIN 90 tablet 4 Active loratadine (Claritin) 10 MG tabletIndication s:Seasonal allergic rhinitis, unspecified trigger TAKE ONE TABLET EVERY MORNING 90 tablet 1 4 Active meclizine (Antivert) 25 MG tabletIndication s:Dizziness TAKE ONE TABLET THREE TIMES DAILY IN THE MORNING, AT NOON, AND AT BEDTIME NEEDED FOR DIZZINESS 60 tablet 3 5 Active Active Problems Problem Noted Date Diagnosed Date Adjustment disorder with mixed anxiety and depre ssed mood 05/04/2024 Upper respiratory tract infection 03/08/2024 Assessment & Plan (03/11/2024 9:49 PM EDT): -Labs were ordered -Pt was prescribed the following: Doxycycline (Vibramycin) 100 MG capsule Guaifenesin (Robitussin) 100 MG/5ML liquid for cough Prednisone (Deltasone) 20 MG tablet to decrease inflammation Advised pt to wear a mask for 3-4 days to prevent possible spread of infection. Printed out a sheet with new and current medications and explained each of them to the pt. Pt kept sheet for his records. Weight loss 03/09/2018 Acute pharyngitis 06/03/2003 Allergic rhinitis 06/03/2003 Encounters Date Type Department Care Team Description 11/15/2024 10:00 AM EST Office Visit [facility] [address] [place] [address] Zeeshan Houston MD Pre-op evaluation (Primary Dx) 11/15/2024 Travel 11/02/2024 1:15 PM EST Immunization [facility] [address] [place] [phone] Jaqui Mcdonald LPN Encounter for immunization (Primary Dx) 11/02/2024 Travel 10/30/2024 Orders Only [facility] External Provider, [facility] 10/25/2024 Telephone [facility] [address] [place] [phone] Zeeshan Houston MD Pre-op Exam 10/23/2024 Telephone [facility] [address], [place] [phone] Zeeshan Houston MD Immunizations 10/10/2024 Refill [facility] [address] [place] [address] Zeeshan Houston MD Dizziness 10/03/2024 Refill [facility] [address] [place] [address] Zeeshan Houston MD Seasonal allergic rhinitis, unspecified trigger 10/01/2024 Refill [facility] [address], [place] [phone] Liane Zarate MD 08/15/2024 2:00 PM EST Office Visit [facility] [address], [place] [phone] Manuel Houston Dental calculus (Primary Dx) from Last 3 Months Immunizations Name Administration Dates Next Due Influenza, IIV3, injectable 08/03/2010 Pneumococcal Conjugate PCV 20 11/02/2024 Zoster, live 10/23/2015 Social History Tobacco Use Types Packs/Day Years Used Date Smoking Tobacco: Every Day Cigarettes 1 58 Smokeless Tobacco: Never Tobacco Cessation:Ready to Q uit: Not Asked; Counseling Given: Not Answered Comments:Currently Smokes 3 cig a day x [...] Orientation Straight 08/09/2022 10 :17 AM EDT Last Filed Vital Signs Vital Sign Reading [...] Mass Index 22.08 11/15/2024 10:17 AM EST Plan of Treatment Upcoming Encounters Date Type Department Care Team (Late st Contact Info) Description 02/14/2025 2:00 PM EDT Office Visit [facility] [address] [place] [phone] Candice Cruz Health Maintenance Due Date Last Done Comments CT Colonography 1952 FIT DNA/Cologuard 1950 FIT 1950 FOBT 1950 Lipid Panel 1950 Sigmoidoscopy 1950 Alcohol/Substance Use Screening 1964 Hepatitis C Screening 1970 DTaP/Tdap/Td Vaccines (1 - Tdap) 1971 Zoster Vaccines (2 of 3) 12/18/2015 10/23/2015 COVID-19 Vaccine (3 - 2023-2 5 season) 2024 01/14/2021, 12/17/2020 Influenza Vaccine (#1) 2024 08/03/2010 Dental Oral Exam 08/16/2024 02/13/2024, 02/09/2023 SDOH Screening 01/24/2025 01/25/2024 Depression Screening 01/30/2025 01/31/2024, 01/31/2024 Dental Prophylaxis 02/13/2025 08/15/2024, 02/13/2024, 02/09/2023 Dental X-Ray: Bitewings 02/13/2025 02/13/2024 Lung Cancer Screening 10/31/2025 10/31/2024 Tobacco Screening 11/15/2025 11/15/2024 Dental X-Ray: Full Mouth 02/13/2027 02/13/2024 RSV Patients and Patients Aged 60 years or older (1 - 1-dose 75+ series) 2027 Colonoscopy 11/30/2032 11/30/2022 Colorectal Cancer Screening 11/30/2032 Pneumococcal Vaccine: 50+ Years Completed 11/02/2024 HIB Vaccines Aged Out No longer eligi ble based on patient's age to complete this topic HPV Vaccines Aged Out No longer eligi ble based on patient's age to complete this topic Hepatitis A Vaccines Aged Out No long er eligible based on patient's age to complete this topic Hepatitis B Vaccines Aged Out No long er eligible based on patient's age to complete this topic IPV Vaccines Aged Out No longer eligi ble based on patient's age to complete this topic Meningococcal Vaccine Aged Out No zahra scot eligible based on patient's age to complete this topic RSV under 20 months Aged Out No longe r eligible based on patient's age to complete this topic Rotavirus Vaccines Aged Out No longer eligible based on patient's age to complete this topic Procedures Procedure Name Priority Date/Time Associated Diagnosis Comments ECG 12-LEAD Routine 11/15/2024 10:29 AM EST Pre-op evaluation LDCT LUNG SCREENING Routine 10/31/2024 8 :48 AM EST ORAL HYGIENE INSTRUCTIONS Routine 08/15/2024 2:00 PM EST PROPHYLAXIS - ADULT Routine 08/15/2024 2 :00 PM EST ADJUNCTIVE GENERAL SERVICES - PROFESSIONAL VISITS - CASE PRESENTATION, SUBSEQUENT TO DETAILED AND EXTENSIVE TREATMENT PLANNING Routine 08/15/2024 2:00 PM EST DIAGNOSTIC - DIAGNOSTIC IMAGING - INTRAORAL - COMPREHENSIVE SERIES OF RADIOGRAPHIC IMAGES Routine 02/13/2024 2:00 PM EDT PERIODIC ORAL EVALUATION - ESTABLISHED PATIENT Routine 02/13/2024 2:00 PM EDT HM COLONOSCOPY Routine 11/30/2022 from Last 3 Months or Most Recently Relevant to Health Maintenance Results * ECG 12 lead (11/15/2024 10:29 AM EST) Narrative Zeeshan Houston MD - 11/15/2024 10:29 AM EST HR 74 bpm. Piffard: -20 degree. NSR. No signn of LAE/CARRIE. No hypertrophy. NO ST elevation/depression. Borderline EKG. us Zeeshan Houston MD ECG ORDERABLES Final Resul t * CT Lung Screening Low dose (10/31/2024 8:48 AM EST) Anatomical Region Laterality Modality Lung Computed Tomogra phy 10/31/2024 8:48 AM EST Narrative 10/31/2024 8:49 AM EST ? [facility] ?[address] ?[place] [address] ? CT Scan Report ? Signed ? Patient: Mundo Negrete ?MR#: [id number] ?? [id number] ? : 1950 ?Acct:[id number] ? Age/Sex: 74 / M ?ADM Date: 10/30/24 ? Loc: HO.CT ? Attending Dr: Milagros Roberts PA-C ? Ordering Physician: Milagros Roberts PA-C ?? Date of Service: 10/30/24 ?? Procedure(s): CT lung screening ?? Accession Number(s): [id number] ? cc: Zeeshan Houston MD; Milagros Roberts PA-C ? Report Number: ?? [id number]: Total DLP = ?? 89.00 mGy-cm ? [...] DD/ 0848 ? TD/TT: 10/31/24 0848 ? Litigation Specialist: ? Procedure Note Donotuseinterpreter, Image - 10/31/[address] [address] [place] Scan Report Signed Patient: Mundo Negrete AMR#: [id number] : 2Acct:[id number] Age/Sex: 74 / MADM Date: 10/30/24 Loc: HO.CT Attending Dr: Milagros Roberts PA-C Ordering Physician: Milagros Roberts PA-C Date of Service: 10/30/24 Procedure(s): CT lung screening Accession Number(s): [id number] cc: Zeeshan Houston MD; Milagros Roberts PA-C Report Number: [id number]: Total DLP = 89.00 mGy-cm CLINICAL HISTORY: [...] in OV> 10/31/2449 DD/ 7 TD/TT: 10/31/24847 Litigation Specialist: [facility] External Provider IMG CT PROCEDURES Final Result * Colonoscopy (11/30/2022) Colonoscopy Normal Normal Narrative Roxy Trotter - 11/30/2022 Repeat colonoscopy not recommended due to age Historical Provider HEALTH MAINTENANCE Final Result from Last 3 Months or Most Recently Relevant to Health Maintenance Insurance [place] [address] [place] [id number] [facility] - HSN FULL (MEDICAID) GENERIC OTHER GENERIC TPL Care Teams Improvement Advisor Relationship Specialty Start Date End Date Zeeshan Houston MD [address] [place] [phone] PCP - General Internal Medicine 02/10/12
--- OUTSIDE RECORDS SUMMARY | 2024-11-15 10:34 | XMS_ITS | Encounter Summary ---
Author Organization [employer] [facility] Address [address] [facility] [address] [place] [address] Care Team Providers Care Glove Brusher Name Role Phone Zeeshan Houston MD Primary Care Provider [phone]- [phone] Encounter Details Date Type Department Care Team (Latest Contact Info) Description 05/29/2019 Abstract [facility] Dental, Provider, DDS Social History Tobacco Use Types Packs/Day Years Used Date Smoking Tobacco: Never Assessed Sex and Gender Information Value Date Recorded Sex Assigned at Male 08/09/2022 10:17 AM EDT Legal Sex Male 10:17 AM EDT Gender Identity Male 08/09/2022 10:17 AM EDT Sexual Orientation Straight 08/09/2022 10 :17 AM EDT documented as of this encounter Plan of Treatment Upcoming Encounters Date Type Department Care Team (Late st Contact Info) Description 02/14/2025 2:00 PM EDT Office Visit [facility] [address] [place] [address] Candice Cruz documented as of this encounter Visit Diagnoses Not on filedocumented in this encounter Care Teams Glove Brusher Relationship Specialty Start Date End Date Zeeshan Houston MD [address] [place] [address] PCP - General Internal Medicine 02/10/12 documented as of this encounter
--- OUTSIDE RECORDS SUMMARY | 2024-11-15 10:34 | XMS_ITS | Encounter Summary ---
Author Organization [employer] Address [address] [facility] [address] [place] [address] Care Team Providers Care Grants Administrator Name Role Phone Zeeshan Houston MD Primary Care Provider [phone]- [phone] Encounter Details Date Type Department Care Team (Late st Contact Info) Description 09/25/2022 Orders Only [facility] [address] [place] [address] Zeeshan Houston MD [address] [place], [place] [phone] Normocytic anemia (Primary Dx) Social History Tobacco Use Types Packs/Day Years Used Date Smoking Tobacco: Every Day Cigarettes Smokeless Tobacco: Never Sex and Gender Information Value Date Recorded [...] suspected to have Coronavirus/COVID-19? No / Unsure 09/22/2022 11:26 AM EST documented as of this encounter Plan of Treatment Upcoming Encounters Date Type Department Care Team (Late st Contact Info) Description 02/14/2025 2:00 PM EDT Office Visit [facility] [address] [place], [place] [phone] Candice Cruz documented as of this encounter Procedures Procedure Name Priority Date/Time Associated Diagnosis Comments IRON, TIBC AND FERRITIN PANEL Routine 10/08/2022 10:06 AM EST Normocytic anemia RETICULOCYTE COUNT Routine 10/08/2022 10 :06 AM EST Normocytic anemia documented in this encounter Results * Reticulocyte Count (10/08/2022 10:06 AM EST) Reticulocyte Count, Automated 1.5 % [facility] [place] [employer] Reticulocyte, Absolute 59,400 25,000 - 90,000 cells/uL [facility] [employer] [place] [facility] Blood Venous blood specimen / Unknown 10/08/2022 10:06 AM EST 10/08/2022 10:06 AM EST Zeeshan Houston MD LAB BLOOD ORDERABLES Final Result Performing Organization Address [facility] de Phone Number [employer] [address] [place] [address], [facility] [place] [address] [employer] [place] [employer] [address] [place] [address], (Nl2) [place] [address] * (ABNORMAL) Iron, TIBC And Ferritin Panel (10/08/2022 10:06 AM EST) Pathologist [facility] Iron, Total 16(L) 50 - 180 mcg/dL [facility] [place] [employer] Iron Binding Capacity 175(L) 250 - 425 mcg/dL (calc) [facility] % Saturation 9(L) 20 - 48 % (calc) [facility] [employer] Ferritin 239 24 - 380 ng/mL [employer] [place] [employer] Blood Venous blood specimen / Unknown 10/08/2022 10:06 AM EST 10/08/2022 10:06 AM EST Zeeshan Houston MD LAB BLOOD ORDERABLES Final Result Performing Organization Address [facility] Co de Phone Number [employer] [address] [place] [address], [place] [address] [employer] [place] [facility] [address] [place] [address], (Nl[address]) [place] [address] documented in this encounter Visit Diagnoses Diagnosis Normocytic anemia- Primary Unspecified anemia documented in this encounter Care Teams Grants Administrator Relationship Specialty Start Date End Date Zeeshan Houston MD [address] [place] [phone] PCP - General Internal Medicine 02/10/12 documented as of this encounter
[2024-11-15 13:55] LABS: MANUAL DIFF FLAG NO
[2024-11-15 13:57] LABS: Basophils Percent Auto 0.7 % (0-2); Eosinophils Absolute Auto 0.1 X10*3/uL (0.0-0.4); Eosinophils Percent Auto 1.8 % (0-4); Hematocrit 43.2 % (42.0-52.0); Hemoglobin 14.3 g/dl (14.0-18.0); Imm Gran Abs Auto 0.01 X10*3/uL (0.00-0.03); Imm Gran Pct Auto 0.2 % (0.0-0.4); Lymphocytes Absolute Auto 1.3 X10*3/uL (1.2-4.9); Lymphocytes Percent Auto 20.9 % (20-40); Mean Corpuscular HGB Conc 33.1 g/dl (31.0-36.0); Mean Corpuscular Hemoglobin 31.7 pg (27.0-33.0); Mean Corpuscular Volume 95.8 fL (80.0-98.0); Mean Platelet Volume 10.5 fL (9.4-12.4); Monocytes Absolute Auto 0.6 X10*3/uL (0.1-1.2); Monocytes Percent Auto 9.1 % (2-11); Neutrophils Absolute Auto 4.1 x10*3/uL (2.0-8.3); Neutrophils Percent Auto 67.3 % (45-73); Platelet Count 266 X10*3/uL (160-400); Red Blood Count 4.51 X10*6/uL (4.60-5.80); Red Cell Distribution Width 13.3 % (11.0-16.0)
[2024-11-15 14:09] LABS: Alanine Aminotransferase 9 U/L (0-40); Alkaline Phosphatase 82 U/L (39-117); Anion Gap 9 (12-20); Aspartate Amino Transferase 21 U/L (5-37); Bilirubin Total 0.3 mg/dL (0.0-1.0); Blood Urea Nitrogen 12 mg/dL (9-16); Calcium 9.7 mg/dL (8.4-10.2); Carbon Dioxide 28 mmol/L (22-29); Chloride 104 mmol/L (96-108); Estimated Glomerular Filt Rate > 60; Glucose Random 68 mg/dL (60-115); Potassium 3.8 mmol/L (3.3-5.1); Sodium 137 mmol/L (135-145); Total Protein 7.4 g/dL (6.5-8.0)
== END 2024-11-15 10:31 | disposition home or self-care (01) ==
LOC: HO.CHCLDS 10:30
PROVIDERS: Visit Provider Internal Medicine
DX: Z01.818 Encounter for other preprocedural examination (principal)
CPT/HCPCS: 36415; 80053; 85025

== ENCOUNTER 2025-02-06 09:24 | Outpatient (REF) | payer MEDICARE, MEDICAID, SELFPAY ==
[2025-02-06 14:47] LABS: Cholesterol 199 mg/dL (<200); HDL Cholesterol 42 mg/dL (>40); LDL Cholesterol Calculated 133 mg/dL (<100); Triglycerides 120 mg/dL (<150)
[2025-02-06 15:05] LABS: TSH reflex Free T4 0.43 uIU/mL (0.32-4.0)
== END 2025-02-06 09:25 | disposition home or self-care (01) ==
LOC: HO.CHCLDS 09:24
PROVIDERS: Visit Provider Internal Medicine
DX: Z00.00 Encounter for general adult medical examination without abnormal findings (principal)
CPT/HCPCS: 36415; 80061; 84443